=== PATIENT | female | born 1935 | race Caucasian/White ===

== ENCOUNTER → 2016-07-13 | Outpatient (CLI) | payer MEDICARE, BC ==
--- NOTE | 2016-07-13 13:19 | US ---
EXAMINATION TYPE: US venous doppler duplex LE LT DATE OF EXAM: 07/13/2016 12:54 PM COMPARISON: NONE CLINICAL HISTORY: M54.5 LOW BACK PAIN,M47.817 SPONDYLOSIS. Left Leg Pain SIDE PERFORMED: Left VESSELS IMAGED: External Iliac Vein (EIV) Common Femoral Vein Deep Femoral Vein Greater Saphenous Vein * Femoral Vein Popliteal Vein Small Saphenous Vein * Proximal Calf Veins (* superficial vessels) Left Leg: Negative for DVT Results called to Radha at 's office at time of exam No popliteal fossa lesion was seen. IMPRESSION: THIS EXAMINATION IS NEGATIVE FOR DVT WITHIN THE LEFT LEG.
== END ==
LOC: RADUSWWP 12:31
PROVIDERS: ATTEND Physical Medicine & Rehabilitation
DX: M54.5 Low back pain (principal)

== ENCOUNTER → 2016-10-11 | Outpatient (CLI) | payer MEDICARE, BC ==
--- NOTE | 2016-10-11 08:43 | US ---
EXAMINATION TYPE: US abdomen limited DATE OF EXAM: 10/11/2016 COMPARISON: CT 2013 CLINICAL HISTORY: K76.89 Hyperintense lesions in liver. Elevated liver enzymes, gallstone EXAM MEASUREMENTS: Liver Length: 15.7 cm Gallbladder Wall: 0.2 cm CBD: 0.2 cm Right Kidney: 9.3 x 4.0 x 4.1 cm Pancreas: wnl Liver: wnl Gallbladder: gallstone Evidence for sonographic Oropeza's sign: No CBD: wnl Right Kidney: wnl Limited views of the pancreas are unremarkable. The liver is normal in size without biliary dilatation. There is a 3 cm calculus within the gallbladder. The gallbladder wall was not thickened measuring 1.7 mm. The distal common hepatic duct is normal in size measuring 2 mm. There is no sonographic Oropeza' s sign. Right kidney is normal. IMPRESSION: CHOLELITHIASIS.
== END | disposition home or self-care (01) ==
LOC: RADUSWWP 07:39
PROVIDERS: ATTEND Family Medicine
DX: K80.20 Calculus of gallbladder without cholecystitis without obstruction (principal)
CPT/HCPCS: 76705

== ENCOUNTER → 2018-04-03 | Outpatient (CLI) | payer MEDICARE, BC ==
--- NOTE | 2018-04-03 10:12 | XR ---
EXAMINATION TYPE: XR abdomen 1V DATE OF EXAM: 04/03/2018 9:57 AM CLINICAL HISTORY: Left sided pain TECHNIQUE: Two supine KUB images of the abdomen are obtained. COMPARISON: CT abdomen pelvis October 27, 2013. FINDINGS: Scattered gas is seen in non-distended small bowel loops. Gas and fecal material is seen in non-distended colon. There is multilevel spurring and disc space narrowing throughout the lumbar spi ne. Metallic hardware from left hip surgery is partially imaged. Rim calcified gallstone over right 1 2th rib is again seen. Lung bases are clear. Some vascular calcification projects over pelvis. IMPRESSION: No definite nephrolithiasis. No significant change from comparison CT.
== END ==
LOC: RADXRMAIN 09:27
PROVIDERS: ATTEND Family Medicine
DX: R10.32 Left lower quadrant pain (principal)
CPT/HCPCS: 74018

== ENCOUNTER → 2018-06-26 | Outpatient (CLI) | payer MEDICARE, BC ==
--- NOTE | 2018-06-26 12:42 | CT ---
EXAMINATION TYPE: CT abdomen pelvis w con DATE OF EXAM: 06/26/2018 COMPARISON: 10/27/2013 HISTORY: 82-year-old female diverticulitis, GI bleed TECHNIQUE: Contiguous axial scanning of the abdomen and pelvis following administration of 100 ml Iso bindu 300 IV contrast. Delayed images through the kidneys and coronal/sagittal reconstructions perform ed. CT DLP: 1193 mGycm Automated exposure control for dose reduction was used. FINDINGS: Heart borderline enlarged without pericardial effusion. Some circumferential thickening at the GE demetrio ction likely relates to a small hiatal hernia. Lung bases clear without pleural effusion. Small fatty left-sided Bochdalek hernia. Stable focal hypodensity posterior right liver lobe suggesting a benign etiology. Tiny subcentimeter hypodensity left hepatic dome too small for accurate CT characterization, probable tiny cyst. Portal venous system is patent. No biliary ductal dilatation. Small diverticulum of the second portio n of the duodenum. There is a 2.8 cm gallstone. Suggestion of a phrygian cap. Some focal thickening at the phrygian cap likely redundant wall, reference axial image 30. Moderate atherosclerotic calcifications throughout the abdominal aorta and iliac arteries without ane urysm. No dilated small bowel, free fluid, or free air. There is moderate to large stool burden. Some diverticular change noted along the sigmoid colon. Mental hardware artifact relating to the patient's left hip total arthroplasty limits visualization o f some of the mid to distal colon. Mild acute diverticulitis in this region cannot be excluded and re quires clinical correlation. Bulging laxity of the lower anterior abdominal wall with small bowel loops. Over the pubic symphysis due to the laxity. There is rectus diastases of 10.6 cm wide. Pelvic floor relaxation. Bladder urine distended. Uterus and ovaries are not visualized. No abnormal fluid collection in the pelvis. Bones: Degenerative changes right hip. Left hip total arthroplasty. Generalized osteopenia and multil evel degenerative changes throughout the lumbar spine. Grade 1, nearly grade 2 anterolisthesis of L4 on L5. Redemonstrated atrophic left psoas major. IMPRESSION: 1. SIGMOID DIVERTICULOSIS. METAL HARDWARE ARTIFACT from the patient's left hip replacement. This obsc ures the mid to distal sigmoid and further clinical correlation will be needed to exclude mild acute diverticulitis here. No abscess or free air identified. 2. Mild circumferential thickening at the GE junction likely relates to a small hiatal hernia. If ind icated by the patient's symptoms, direct visualization can be performed. 3. A 2.8 cm gallstone. Thickening at the gallbladder fundus likely relates to a phrygian cap and wall redundancy. Consider 3 month follow-up gallbladder ultrasound to reevaluate. 4. Rectus diastases measuring 10.6 cm wide. There is anterior bulging laxity of the lower anterior ab dominal wall with some small bowel loops secondarily draped over the pubic symphysis.
== END | disposition home or self-care (01) ==
LOC: RADCTMAIN 08:55
PROVIDERS: ATTEND Surgery
DX: K57.30 Diverticulosis of large intestine without perforation or abscess without bleeding (principal); K80.20 Calculus of gallbladder without cholecystitis without obstruction; M62.08 Separation of muscle (nontraumatic), other site
CPT/HCPCS: 82565; 84520; 74177; 36415; Q9967

== ENCOUNTER → 2018-07-02 | Day surgery (SDC) | payer MEDICARE, BC ==
[2018-06-27 15:44] VITALS: BMI 34.0
[~2018-07-02] MED LIST: GLUCAGON 1 MG/ML VIAL ONE; LACTATED RINGERS 1,000 ML IV SCH; LIDOCAINE 1% 20 ML VIAL (10MG/ML) FOR IV START INTRADERMA PRN; LIDOCAINE 1% INJ 10MG/ML (20 ML MDV) ONE; PROPOFOL 10 MG/ML 20 ML VIAL IV ONE
[2018-07-02 08:04] VITALS: RESP 16; TEMP 98.1
--- NOTE | 2018-07-02 09:01 | P.GSHP ---
History of Present Illness H&P Date: 07/02/18 Chief Complaint: GI bleed, diverticulitis This is a 82-year-old female who presents today for colonoscopy. Patient had issues with GI bleed. She is. History of diverticulitis. Past Medical History Past Medical History: Cancer, Hyperlipidemia, Hypertension, Skin Disorder Additional Past Medical History / Comment(s): skin cancer, blood in stool, diverticulitis, History of Any Multi-Drug Resistant Organisms: None Reported Past Surgical History: Hysterectomy, Joint Replacement Additional Past Surgical History / Comment(s): Left hip replacement, Right KNEE replacement, Skin cancer removed on back Past Anesthesia/Blood Transfusion Reactions: No Reported Reaction Smoking Status: Never smoker - Past Family History Mother Family Medical History: No Reported History Medications and Allergies Home Medications Medication Instructions Recorded Confirmed Type Atenolol [Tenormin] 25 mg PO DAILY 10/27/13 07/02/18 History Lisinopril-Hctz 10-12.5 mg 1 tab PO BID 10/27/13 07/02/18 History [Zestoretic 10-12.5] cloNIDine HCL [Catapres] 0.2 mg PO TID 10/27/13 07/02/18 History hydrALAZINE HCL 50 mg PO TID 10/27/13 07/02/18 History Vit A,C & E/Lutein/Minerals 1 each PO DAILY 12/16/13 07/02/18 History [Ocuvite Tablet] Aspirin [Adult Low Dose Aspirin EC] 81 mg PO DAILY 06/27/18 07/02/18 History Atorvastatin [Lipitor] 20 mg PO HS 06/27/18 07/02/18 History Calcium Carbonate [Calcium] 600 mg PO DAILY 06/27/18 07/02/18 History Vitamin D(Dose Unknown) 1 tab PO DAILY 06/27/18 07/02/18 History Allergies Allergy/AdvReac Type Severity Reaction Status Date / Time No Known Allergies Allergy Verified 06/27/18 15:30 Surgical - Exam Vital Signs Temp Pulse Resp BP Pulse Ox 98.1 F 57 L 16 202/87 94 L 07/02/18 08:03 07/02/18 08:03 07/02/18 08:03 07/02/18 08:03 07/02/18 08:03 - General well developed, well nourished, no distress - Eyes PERRL - ENT normal pinna - Neck no masses - Respiratory normal expansion - Cardiovascular Rhythm: regular - Abdomen Abdomen: soft, non tender Assessment and Plan Assessment: History of GI bleed, diverticulitis. We'll perform colonoscopy..
--- NOTE | 2018-07-02 09:21 | P.OP ---
Date of Procedure: 07/02/18 Preoperative Diagnosis: GI bleed, Diverticulitis Postoperative Diagnosis: Diverticulitis Procedure(s) Performed: Colonoscopy Anesthesia: MAC Surgeon: Wyatt Camp Pathology: none sent Condition: stable Disposition: PACU Description of Procedure: The patient was placed on the endoscopy table in the lateral position. She received IV sedation. Digital rectal exam was performed which revealed no ebonized. Flexible colonoscope was then placed patient anus and passed throughout the rectum. The scope was then entered into the sigmoid colon. There were diverticula seen. In the sigmoid colon Was very tortuous. The scope could not be maneuvered through the sigmoid colon secondary to tortuosity the colon. Several attempts were made to maneuver the colonoscope. At this point the colonoscope withdrawn and a pediatric colonoscope was tried once again the scope could not be passed throughout the sigmoid colon secondary to tortuosity of the bowel. At this point the scope was withdrawn. The rectum appeared normal. Patient tolerated procedure well and was sent to recovery in stable condition.
[2018-07-02 09:40] VITALS: BP 177/81; PULSE 58
== END ==
LOC: ORWHC2ENDO 07:46
PROVIDERS: ATTEND Surgery
DX: K57.33 Diverticulitis of large intestine without perforation or abscess with bleeding (principal); I10 Essential (primary) hypertension; E78.5 Hyperlipidemia, unspecified; L98.9 Disorder of the skin and subcutaneous tissue, unspecified; Z79.899 Other long term (current) drug therapy; Z79.82 Long term (current) use of aspirin; Z85.828 Personal history of other malignant neoplasm of skin; Z96.642 Presence of left artificial hip joint; Z96.651 Presence of right artificial knee joint
CPT/HCPCS: 45330; J1610; J2001; J2704

== ENCOUNTER → 2018-07-11 | Outpatient (CLI) | payer MEDICARE, BC ==
[2018-07-11 13:05] LABS: Potassium 4.4 mmol/L (3.5-5.1)
[2018-07-11 13:27] LABS: HCT 39.4 % (34.0-46.0); HGB 12.5 gm/dL (11.4-16.0); MCH 29.2 pg (25.0-35.0); MCHC 31.7 g/dL (31.0-37.0); MCV 92.3 fL (80.0-100.0); Mean Platelet Volume 6.9; Platelet Count 251 k/uL (150-450); RBC 4.27 m/uL (3.80-5.40); RDW 13.6 % (11.5-15.5); WBC 9.5 k/uL (3.8-10.6)
== END ==
LOC: LABPAT 10:57
PROVIDERS: ATTEND Surgery
DX: Z01.818 Encounter for other preprocedural examination (principal); K57.33 Diverticulitis of large intestine without perforation or abscess with bleeding
CPT/HCPCS: 36415; 80051; 85027; 86850; 86900; 86901; 93005

== ENCOUNTER 2018-07-15 09:33 | Inpatient (IN) | payer MEDICARE, BC ==
[2018-07-11 13:37] VITALS: BMI 34.0
[~2018-07-15 09:33] MED LIST changes: +DEXAMETHASONE SOD PHOSPHATE 10 MG/ML 1 ML VIAL IV ONE; -GLUCAGON 1 MG/ML VIAL ONE; +HEPARIN SODIUM,PORCINE 5,000 UNIT/ML 1 ML VIAL SQ ONE; +HYDROmorphone 0.5 MG/0.5 ML SYRINGE IVP PRN; -LACTATED RINGERS 1,000 ML IV SCH; -LIDOCAINE 1% 20 ML VIAL (10MG/ML) FOR IV START INTRADERMA PRN; -LIDOCAINE 1% INJ 10MG/ML (20 ML MDV) ONE; +MIDAZOLAM (PF) 2 MG/2 ML VIAL IV PRN; +ONDANSETRON 4 MG/2 ML VIAL IVP ONE; -PROPOFOL 10 MG/ML 20 ML VIAL IV ONE; +ceFAZolin IN SWFI 2 GM/20 ML SYRINGE IVP ONE; +metroNIDAZOLE-NS PMX 500 MG in SALINE 1 100ML.BAG IVPB ONE
[2018-07-15] MEDS: LACTATED RINGERS 1,000 ML IV SCH ×4 (10:32→22:28)
[2018-07-15] MEDS ORDERED: LIDOCAINE 1% 20 ML VIAL (10MG/ML) FOR IV START INTRADERMA ONE (10:32)
[2018-07-15] MEDS ORDERED: ALVIMOPAN 12 MG CAPSULE PO ONE (10:50)
--- NOTE | 2018-07-15 10:51 | P.GSHP ---
History of Present Illness H&P Date: 07/15/18 Chief Complaint: Cholelithiasis, diverticulitis This a 83-year-old female who presents today for laparoscopic cholecystectomy and low anterior section. Patient's had issues of abdominal pain and GI bleed. She is worked up found have evidence of a calcified gallbladder with gallstones impacted in the neck of the gallbladder as well as diverticulitis. Patient has had several episodes of rectal bleeding related to diverticulitis. Patient is aware the risks of surgery discussed with patient and family the risk of colon surgery including possible colostomy. Past Medical History Past Medical History: Cancer, Hypertension, Skin Disorder Additional Past Medical History / Comment(s): HX SKIN CANCER , DIVERTICULITIS, GALL STONE, CONSTIPATION & BLOOD IN STOOL., STATES SHE WEARS A RIGHT ANKLE BRACE AND USES A CANE. History of Any Multi-Drug Resistant Organisms: None Reported Past Surgical History: Hysterectomy, Joint Replacement Additional Past Surgical History / Comment(s): Left HIP,Right KNEE, Skin cancer removed on back , COLONOSCOPY. Past Anesthesia/Blood Transfusion Reactions: No Reported Reaction Past Psychological History: No Psychological Hx Reported Smoking Status: Never smoker Past Alcohol Use History: None Reported Past Drug Use History: None Reported - Past Family History Mother Family Medical History: No Reported History Medications and Allergies Home Medications Medication Instructions Recorded Confirmed Type Atenolol [Tenormin] 25 mg PO DAILY 10/27/13 07/15/18 History Lisinopril-Hctz 10-12.5 mg 1 tab PO BID 10/27/13 07/15/18 History [Zestoretic 10-12.5] cloNIDine HCL [Catapres] 0.2 mg PO TID 10/27/13 07/15/18 History hydrALAZINE HCL 50 mg PO TID 10/27/13 07/15/18 History Vit A,C & E/Lutein/Minerals 1 each PO DAILY 12/16/13 07/15/18 History [Ocuvite Tablet] Aspirin [Adult Low Dose Aspirin EC] 81 mg PO DAILY 06/27/18 07/15/18 History Atorvastatin [Lipitor] 20 mg PO HS 06/27/18 07/15/18 History Cholecalciferol [Vitamin D3] 1,000 unit PO DAILY 07/11/18 07/15/18 History Allergies Allergy/AdvReac Type Severity Reaction Status Date / Time No Known Allergies Allergy Verified 07/15/18 10:38 Surgical - Exam Vital Signs Temp Pulse Resp BP Pulse Ox 97.0 F L 55 L 16 138/68 97 07/15/18 10:15 07/15/18 10:15 07/15/18 10:15 07/15/18 10:15 07/15/18 10:15 - General well developed, well nourished, no distress - Eyes PERRL - ENT normal pinna, normal nares, normal mucosa - Neck no masses - Respiratory normal expansion - Cardiovascular Rhythm: regular - Abdomen Abdomen: soft, non tender Assessment and Plan Assessment: Cholelithiasis, calcified gallbladder. We'll perform laparoscopic close to 3 Diverticulitis. We'll perform low anterior resection..
[2018-07-15] MEDS ORDERED: LIDOCAINE 1% INJ 10MG/ML (20 ML MDV) ONE (11:40)
[2018-07-15] MEDS ORDERED: NEOSTIGMINE 1 MG/ML 10 ML VIAL ONE (11:40)
[2018-07-15] MEDS ORDERED: SUCCINYLCHOLINE CHLORIDE 100 MG/5 ML SYR IV ONE (11:40)
[2018-07-15] MEDS ORDERED: KETAMINE 10 MG/ML 20 ML VIAL ONE (11:40)
[2018-07-15] MEDS ORDERED: GLYCOPYRROLATE 0.2 MG/ML 2 ML VIAL ONE (11:40)
[2018-07-15] MEDS ORDERED: PROPOFOL 10 MG/ML 20 ML VIAL IV ONE (11:40)
[2018-07-15] MEDS ORDERED: fentaNYL (PF) 50 MCG/ML 2 ML AMP ONE (11:40)
[2018-07-15] MEDS ORDERED: ROCURONIUM BROMIDE 10 MG/ML 10 ML VIAL IV ONE (11:40)
[2018-07-15] MEDS ORDERED: KETOROLAC 30 MG/ML 1 ML VIAL ONE (11:40)
[2018-07-15] MEDS ORDERED: BUPIVACAIN-EPI 0.5%-1:200,000 30 ML VIAL SQ ONE (12:03)
[2018-07-15] MEDS ORDERED: LACTATED RINGERS 1,000 ML IV ONE (12:15)
[2018-07-15] MEDS ORDERED: ONDANSETRON 4 MG/2 ML VIAL IVP PRN (13:50)
[2018-07-15] MEDS ORDERED: BENZOCAINE/MENTHOL LOZENG 1 EACH LOZENGE MUCOUS MEM PRN (13:50)
[2018-07-15] MEDS ORDERED: METOCLOPRAMIDE 5 MG/ML 2 ML VIAL IVP PRN (13:50)
--- NOTE | 2018-07-15 13:59 | P.OP ---
Date of Procedure: 07/15/18 Preoperative Diagnosis: Cholecystitis Diverticulitis Postoperative Diagnosis: Cholecystitis Diverticulitis Procedure(s) Performed: Laparoscopic cholecystectomy Low anterior resection Repair of incarcerated incisional hernia Partial omentectomy Anesthesia: WINSOME Surgeon: Wyatt Camp Pathology: other (Gallbladder, sigmoid colon) Condition: stable Disposition: PACU Description of Procedure: The patient was placed on the operating table. The patient received a general endotracheal tube anesthesia. Patient was placed in dorsal lithotomy position. The patients abdomen was prepped and draped in the usual sterile fashion. Through an infraumbilical stab incision, the fascia of the anterior abdominal wall was grasped with a pair of Kochers and then the Veress needle was placed in the peritoneal cavity. Position of the Veress needle was confirmed with positive drop test. The abdomen was then insufflated. After adequate insufflation, the 10 mm trocar was placed in the peritoneal cavity. Following this the laparoscope was placed in the peritoneal cavity. The patient was placed in the head-up, right side up position and then a 5 mm trocar was placed in the right lateral and right subcostal position under direct visualization. A 8 mm trocar was placed in the epigastric position. The gallbladder was grasped in the fundus and infundibulum. Traction on the gallbladder was placed in the lateral and the cephalad positions. The triangle of Calot was visualized.. The cystic duct was bluntly dissected until the union of the cystic duct and common bile duct was seen. The cystic duct was then divided and sealed with the Harmonic scissors. A PDS Endoloop was then placed throughout the cystic duct stump. The cystic artery divided and sealed with the Harmonic scissors. The gallbladder was then removed from the liver bed using Harmonic scissors. The liver bed was inspected for hemostasis. There is no bleeding seen. A grasper was placed through the epigastric port site and the gallbladder was grasped. At this point the abdomen was entered through a low midline incision. There was evidence of an incarcerated hernia in the low portion of her previous midline scar. There was omentum in the hernia. The hernia was opened and the omentum was transected with the Enseal device. The specimens of pathology. Once the abdomen was opened the gallbladder was retrieved. The trochars withdrawn. The Bookwalter retractors placed a wound. The sigmoid colon appeared to be scarred and inflamed. At this point the white line of Toldt was divided. The left colon and sigmoid colon was rotated medially. The splenic flexure was taken down with sharp dissection. An enterotomy was made on the sigmoid colon and then the anvil for the 25 mm EEA stapler was placed into the descending colon. At this point the distal descending colon was transected with a GI stapler. The anvil was then brought out through the staple line. The mesentery of the sigmoid colon and rectum was divided using the Enseal device. The rectum was then transected using the contour stapler. Next, the anal dilators placed patient anus and placed into the rectal stump., Next, the EEA stapler was placed in the patient's anus by the observation assistant. The spike was driven through the staple line. And then the anvil was connected to the stapler. Stapler was then closed and fired. The stapler was then withdrawn. 2 intact tissue rings were withdrawn. Next the bowel was clamped with a hydro- vegetable cutter and then using a rigid sigmoidoscope the rectum was insufflated with air. There was no evidence of any extravasation of air. There is known to any leak of the staple line. The stapler was checked under water. This point the abdomen was irrigated. Using clean instruments the fascia was closed. Repair of the incisional hernia was performed with fascial closure. The skin was closed don. The prevena wound system was placed on the closed skin. Patient top she will was sent to recovery in stable condition.
[2018-07-15] MEDS ORDERED: D5-0.45% NACL WITH KCL 20MEQ/L 1,000 ML IV SCH (15:00)
[2018-07-15] MEDS: HEPARIN SODIUM,PORCINE 5,000 UNIT/ML 1 ML VIAL SQ SCH (15:18)
[2018-07-15 16:30] LABS: Basophils % (A) 0 %; Eosinophils # (A) 0.1 k/uL (0-0.7); Eosinophils % (A) 1 %; HGB 12.8 gm/dL (11.4-16.0); Lymphocytes # (A) 0.4 k/uL (1.0-4.8); Lymphocytes % (A) 4 %; MCH 29.3 pg (25.0-35.0); MCHC 32.1 g/dL (31.0-37.0); MCV 91.3 fL (80.0-100.0); Mean Platelet Volume 7.4; Monocytes # (A) 0.4 k/uL (0-1.0); Monocytes % (A) 4 %; Neutrophils # (A) 9.8 k/uL (1.3-7.7); Neutrophils % (A) 91 %; Platelet Count 223 k/uL (150-450); RBC 4.38 m/uL (3.80-5.40); RDW 13.9 % (11.5-15.5); WBC 10.7 k/uL (3.8-10.6)
[2018-07-15 16:38] LABS: Calcium 9.1 mg/dL (8.4-10.2); Potassium 3.2 mmol/L (3.5-5.1)
[2018-07-15] MEDS ORDERED: ENALAPRILAT 1.25 MG/ML 1 ML VIAL IVP STA (17:18)
[2018-07-15] MEDS: SODIUM CHLORIDE 0.9% 1,000 ML IV SCH (17:47)
[2018-07-15] MEDS ORDERED: cloNIDine 0.2 MG/24HR PATCH TRANSDERM SCH (18:00)
[2018-07-15] MEDS: FAMOTIDINE 20 MG/2 ML VIAL IV SCH (21:49)
[2018-07-15] MEDS: ALVIMOPAN 12 MG CAPSULE PO SCH (21:49)
[2018-07-16] MEDS: SODIUM CHLORIDE 0.9% 1,000 ML IV SCH ×3 (00:15→23:58)
[2018-07-16] MEDS: HEPARIN SODIUM,PORCINE 5,000 UNIT/ML 1 ML VIAL SQ SCH ×3 (00:15→17:11)
[2018-07-16] MEDS: LACTATED RINGERS 1,000 ML IV SCH (06:24)
--- NOTE | 2018-07-16 07:48 | P.CONS ---
History of Present Illness - Reason for Consult Consult date: 07/16/18 Requesting physician: Wyatt Camp - Chief Complaint Post op medical management - History of Present Illness This is a consultation note on an 83-year-old white female patient with known history of hypertension who is seen postoperatively from acute colitis with resection area the patient is having elevated blood pressure at this time postoperatively. We will continue Vasotec. Question need for beta deepa. However the patient is lucid without significant chest pain or shortness of breath. No headaches or visual distortion stated. No flatus as of yet postop day #1. Review of Systems Constitutional: Denies chills, Denies fever Eyes: denies blurred vision, denies pain Ears, nose, mouth and throat: Denies headache, Denies sore throat Cardiovascular: Denies chest pain, Denies dyspnea on exertion, Denies edema Respiratory: Denies cough, Denies dyspnea Gastrointestinal: Reports abdominal pain, Denies nausea, Denies vomiting Genitourinary: Denies dysuria, Denies hematuria Musculoskeletal: Denies myalgias Past Medical History Past Medical History: Cancer, Hypertension, Skin Disorder Additional Past Medical History / Comment(s): HX SKIN CANCER , DIVERTICULITIS, GALL STONE, CONSTIPATION & BLOOD IN STOOL., STATES SHE WEARS A RIGHT ANKLE BRACE AND USES A CANE. History of Any Multi-Drug Resistant Organisms: None Reported Past Surgical History: Hysterectomy, Joint Replacement Additional Past Surgical History / Comment(s): Left HIP,Right KNEE, Skin cancer removed on back , COLONOSCOPY. bladder lift. Past Anesthesia/Blood Transfusion Reactions: No Reported Reaction Past Psychological History: No Psychological Hx Reported, Anxiety Additional Psychological History / Comment(s): does not take medication for. Smoking Status: Never smoker Past Alcohol Use History: None Reported Past Drug Use History: None Reported - Past Family History Mother Family Medical History: No Reported History Medications and Allergies Home Medications Medication Instructions Recorded Confirmed Type Atenolol [Tenormin] 25 mg PO DAILY 10/27/13 07/15/18 History Lisinopril-Hctz 10-12.5 mg 1 tab PO BID 10/27/13 07/15/18 History [Zestoretic 10-12.5] cloNIDine HCL [Catapres] 0.2 mg PO TID 10/27/13 07/15/18 History hydrALAZINE HCL 50 mg PO TID 10/27/13 07/15/18 History Vit A,C & E/Lutein/Minerals 1 tab PO DAILY 12/16/13 07/15/18 History [Ocuvite Tablet] Aspirin [Adult Low Dose Aspirin EC] 81 mg PO DAILY 06/27/18 07/15/18 History Atorvastatin [Lipitor] 20 mg PO HS 06/27/18 07/15/18 History Cholecalciferol [Vitamin D3] 1,000 unit PO DAILY 07/11/18 07/15/18 History Allergies Allergy/AdvReac Type Severity Reaction Status Date / Time No Known Allergies Allergy Verified 07/15/18 14:04 Physical Exam Vitals: Vital Signs Temp Pulse Resp BP BP Pulse Ox 07/16/18 04:00 16 07/16/18 01:07 98.2 F 76 16 177/81 93 L 07/16/18 00:00 18 07/15/18 19:46 99.4 F 75 18 171/81 94 L 07/15/18 16:45 59 L 165/72 07/15/18 16:30 69 163/74 07/15/18 16:15 60 136/73 07/15/18 16:00 64 148/68 07/15/18 15:45 51 L 154/64 07/15/18 15:30 54 L 154/53 07/15/18 15:15 48 L 155/65 07/15/18 15:00 58 L 185/75 07/15/18 14:45 97.9 F 56 L 14 172/78 91 L 07/15/18 14:15 58 L 16 154/79 93 L 07/15/18 14:00 57 L 14 188/87 94 L 07/15/18 13:53 97.8 F 60 18 199/83 96 07/15/18 10:15 97.0 F L 55 L 16 138/68 97 Intake and Output 07/15/18 07/16/18 07/16/18 22:59 06:59 14:59 Output Total 150 250 Balance -150 -250 Output: Urine 150 250 Other: Voiding Method Indwelling Catheter Indwelling Catheter - Constitutional General appearance: average body habitus - EENT Eyes: no abnormal pupil - Neck Neck: no lymphadenopathy - Respiratory Respiratory: bilateral: CTA - Cardiovascular Rhythm: regular Heart sounds: normal: S1, S2 Abnormal Heart Sounds: no S3 Gallop, no S4 Gallop - Gastrointestinal General gastrointestinal: absent bowel sounds, soft, tenderness - Psychiatric Psychiatric: A&O x's 3, appropriate affect, intact judgment & insight Results CBC & Chem 7: 07/15/18 16:00 07/15/18 16:00 Labs: Abnormal Lab Results - Last 24 Hours (Table) 07/15/18 07/15/18 Range/Units 16:00 16:00 WBC 10.7 H (3.8-10.6) k/uL Neutrophils # 9.8 H (1.3-7.7) k/uL Lymphocytes # 0.4 L (1.0-4.8) k/uL Potassium 3.2 L (3.5-5.1) mmol/L BUN 23 H (7-17) mg/dL Glucose 126 H (74-99) mg/dL Assessment and Plan (1) Acute colitis Current Visit: No Status: Acute Code(s): K52.9 - NONINFECTIVE GASTROENTERITIS AND COLITIS, UNSPECIFIED SNOMED Code(s): 46252158 (2) HTN (hypertension) Current Visit: No Status: Acute Code(s): I10 - ESSENTIAL (PRIMARY) HYPERTENSION SNOMED Code(s): 90465735 (3) Hyperlipemia Current Visit: No Status: Acute Code(s): E78.5 - HYPERLIPIDEMIA, UNSPECIFIED SNOMED Code(s): 18330798 Plan: Keep nothing by mouth for now per surgical protocol. Check CBC and CMP in a.m. per Continue clonidine patch. Vasotec every 6 hours when necessary. Otherwise hydralazine IV also could be added. Continue to follow. Appreciate consultation. Time with Patient: Greater than 30
[2018-07-16] MEDS: FAMOTIDINE 20 MG/2 ML VIAL IV SCH ×2 (08:09→20:03)
[2018-07-16] MEDS: ALVIMOPAN 12 MG CAPSULE PO SCH ×2 (08:10→20:03)
[2018-07-16] MEDS: HYDROmorphone 1 MG/ML 1 ML SYRINGE IVP PRN ×2 (09:10→23:59)
[2018-07-16 10:29] LABS: Basophils % (A) 0 %; Eosinophils # (A) 0.1 k/uL (0-0.7); Eosinophils % (A) 0 %; HCT 34.2 % (34.0-46.0); HGB 10.8 gm/dL (11.4-16.0); Lymphocytes # (A) 0.7 k/uL (1.0-4.8); Lymphocytes % (A) 4 %; MCH 29.2 pg (25.0-35.0); MCHC 31.6 g/dL (31.0-37.0); MCV 92.4 fL (80.0-100.0); Mean Platelet Volume 8.4; Monocytes # (A) 0.7 k/uL (0-1.0); Monocytes % (A) 5 %; Neutrophils # (A) 14.5 k/uL (1.3-7.7); Neutrophils % (A) 90 %; Platelet Count 211 k/uL (150-450); WBC 16.1 k/uL (3.8-10.6)
[2018-07-16 10:50] LABS: Albumin 2.8 g/dL (3.5-5.0); Calcium 8.5 mg/dL (8.4-10.2); Potassium 3.6 mmol/L (3.5-5.1); Total Bilirubin 0.5 mg/dL (0.2-1.3); Total Protein 5.2 g/dL (6.3-8.2)
--- NOTE | 2018-07-16 13:55 | P.PN ---
Subjective Progress Note Date: 07/16/18 CHIEF COMPLAINT: Cholelithiasis, diverticulitis HISTORY OF PRESENT ILLNESS: 83-year-old female who is status post laparoscopic cholecystectomy, low anterior resection, repair of incarcerated incisional hernia, and partial omentectomy. POD #1. Patient reports her pain is tolerable at this time. Denies nausea or vomiting. She is tolerating clear liquids. Denies passing flatus. No BM. PHYSICAL EXAM: VITAL SIGNS: Reviewed. GENERAL: Well-developed in no acute distress. HEENT: No sclera icterus. Extraocular movements grossly intact. Moist buccal mucosa. Head is atraumatic, normocephalic. ABDOMEN: Soft. Nondistended. Laparoscopic incision sites clean dry and intact. PREVENA intact to midline incision NEUROLOGIC: Alert and oriented. Cranial nerves II through XII grossly intact. ASSESSMENT: 1. Cholelithiasis & diverticulitis, status post laparoscopic cholecystectomy, low anterior resection, repair of incarcerated incisional hernia, and partial omentectomy PLAN: 1. Continue clear liquid diet until patient begins passing flatus 2. Incentive spirometry 3. Pain control 4. Activity as tolerated. Patient encouraged to be OOB and ambulatory. 5. Repeat labs in AM Nurse practitioner note has been reviewed by physician. Signing provider agrees with the documented findings, assessment, and plan of care. Objective - Vital Signs Vital signs: Vital Signs Temp 98.2 F 07/16/18 07:00 Pulse 61 07/16/18 08:00 Resp 16 07/16/18 08:00 BP 127/71 07/16/18 07:00 Pulse Ox 93 L 07/16/18 01:07 Intake & Output 07/15/18 07/16/18 07/16/18 18:59 06:59 18:59 Intake Total 1900 Output Total 700 400 Balance 1200 -400 Intake: IV 1900 Output: Urine 450 400 Estimated Blood Loss 250 Other: Voiding Method Indwelling Catheter Indwelling Catheter Indwelling Catheter - Labs CBC & Chem 7: 07/16/18 10:20 07/16/18 10:20 Labs: Abnormal Lab Results - Last 24 Hours (Table) 07/15/18 07/15/18 07/16/18 Range/Units 16:00 16:00 10:20 WBC 10.7 H 16.1 H (3.8-10.6) k/uL RBC 3.70 L (3.80-5.40) m/uL Hgb 10.8 L (11.4-16.0) gm/dL Neutrophils # 9.8 H 14.5 H (1.3-7.7) k/uL Lymphocytes # 0.4 L 0.7 L (1.0-4.8) k/uL Potassium 3.2 L (3.5-5.1) mmol/L BUN 23 H (7-17) mg/dL Glucose 126 H (74-99) mg/dL Total Protein (6.3-8.2) g/dL Albumin (3.5-5.0) g/dL 07/16/18 Range/Units 10:20 WBC (3.8-10.6) k/uL RBC (3.80-5.40) m/uL Hgb (11.4-16.0) gm/dL Neutrophils # (1.3-7.7) k/uL Lymphocytes # (1.0-4.8) k/uL Potassium (3.5-5.1) mmol/L BUN 19 H (7-17) mg/dL Glucose 141 H (74-99) mg/dL Total Protein 5.2 L (6.3-8.2) g/dL Albumin 2.8 L (3.5-5.0) g/dL
[2018-07-16] MEDS: HYDROcodone/APAP 5-325MG 1 EACH TAB PO PRN ×2 (16:02→20:04)
[2018-07-16] MEDS: ENALAPRILAT 1.25 MG/ML 1 ML VIAL IVP PRN (20:04)
[2018-07-17] MEDS: HEPARIN SODIUM,PORCINE 5,000 UNIT/ML 1 ML VIAL SQ SCH ×4 (01:35→23:51)
[2018-07-17] MEDS: SODIUM CHLORIDE 0.9% 1,000 ML IV SCH ×4 (01:57→16:48)
[2018-07-17] MEDS: ENALAPRILAT 1.25 MG/ML 1 ML VIAL IVP PRN (02:15)
--- NOTE | 2018-07-17 07:39 | P.PN ---
Subjective Progress Note Date: 07/17/18 Principal diagnosis: Status post cholecystectomy This is a continue progress note an 83-year-old white female who is postop day #2 for left scalp cholecystectomy and incisional hernia element repair. The patient states appropriate bowel movement and tolerating clear liquids. H opefully we can advance today diet per surgery. Otherwise no fever or chills. Pain is nominal. Objective - Vital Signs Vital signs: Vital Signs Temp 98.1 F 07/17/18 01:22 Pulse 87 07/17/18 01:22 Resp 16 07/17/18 01:22 BP 180/99 07/17/18 06:10 Pulse Ox 92 L 07/17/18 01:22 Intake & Output 07/16/18 07/17/18 07/17/18 18:59 06:59 18:59 Intake Total 1050 Output Total 550 Balance 1050 -550 Intake: Intake, IV Titration 1050 Amount Sodium Chloride 0.9% 1, 1050 000 ml @ 150 mls/hr IV . Q6H40M [facility] Rx#:[id number] Output: Urine 550 Other: Voiding Method Indwelling Catheter - Constitutional General appearance: Present: average body habitus - EENT Eyes: Absent: abnormal pupil - Neck Neck: Absent: lymphadenopathy Thyroid: bilateral: normal size - Respiratory Respiratory: bilateral: CTA - Cardiovascular Rhythm: regular Heart sounds: normal: S1, S2 Abnormal Heart Sounds: Absent: S3 Gallop - Gastrointestinal General gastrointestinal: Present: soft. Absent: tenderness - Psychiatric Psychiatric: Present: A&O x's 3, appropriate affect - Labs CBC & Chem 7: 07/16/18 10:20 07/16/18 10:20 Labs: Abnormal Lab Results - Last 24 Hours (Table) 07/16/18 07/16/18 Range/Units 10:20 10:20 WBC 16.1 H (3.8-10.6) k/uL RBC 3.70 L (3.80-5.40) m/uL Hgb 10.8 L (11.4-16.0) gm/dL Neutrophils # 14.5 H (1.3-7.7) k/uL Lymphocytes # 0.7 L (1.0-4.8) k/uL BUN 19 H (7-17) mg/dL Glucose 141 H (74-99) mg/dL Total Protein 5.2 L (6.3-8.2) g/dL Albumin 2.8 L (3.5-5.0) g/dL Assessment and Plan (1) Acute colitis Current Visit: No Status: Acute Code(s): K52.9 - NONINFECTIVE GASTROENTERITIS AND COLITIS, UNSPECIFIED SNOMED Code(s): 98885371 (2) HTN (hypertension) Current Visit: No Status: Acute Code(s): I10 - ESSENTIAL (PRIMARY) HYPERT ENSION SNOMED Code(s): 33805311 (3) Hyperlipemia Current Visit: No Status: Acute Code(s): E78.5 - HYPERLIPIDEMIA, UNSPECIFIED SNOMED Code(s): 85806011 Plan: Continue current regimen or treatment. Advance diet per surgery. We'll continue follow during this medical management. Anticipate discharge in next 24 hours if cleared by surgery. Time with Patient: Less than 30
[2018-07-17] MEDS: ALVIMOPAN 12 MG CAPSULE PO SCH ×2 (08:09→22:00)
[2018-07-17] MEDS: CHOLECALCIFEROL 1,000 UNIT TAB PO SCH (08:09)
[2018-07-17] MEDS: ATENOLOL 25 MG TAB PO SCH (08:09)
[2018-07-17] MEDS: FAMOTIDINE 20 MG/2 ML VIAL IV SCH (08:09)
[2018-07-17 08:10] LABS: Potassium 3.6 mmol/L (3.5-5.1); Total Bilirubin 0.5 mg/dL (0.2-1.3); Total Protein 5.5 g/dL (6.3-8.2)
[2018-07-17 08:11] LABS: HCT 33.4 % (34.0-46.0); HGB 10.5 gm/dL (11.4-16.0); Hypochromasia Slight; MCH 29.4 pg (25.0-35.0); MCHC 31.4 g/dL (31.0-37.0); MCV 93.7 fL (80.0-100.0); Mean Platelet Volume 7.5; Platelet Count 229 k/uL (150-450); RBC 3.57 m/uL (3.80-5.40); WBC 15.9 k/uL (3.8-10.6)
[2018-07-17] MEDS: HYDROcodone/APAP 5-325MG 1 EACH TAB PO PRN (08:18)
[2018-07-17] MEDS ORDERED: hydrALAZINE HCL 50 MG TAB PO SCH (09:00)
[2018-07-17] MEDS ORDERED: cloNIDine HCL 0.2 MG TAB PO SCH (09:00)
[2018-07-17] MEDS: LACTATED RINGERS 1,000 ML IV SCH (10:34)
[2018-07-17] MEDS: VIT A,C & E-LUTEIN-MINERALS 1 EACH TAB PO SCH (10:35)
[2018-07-17] MEDS: LISINOPRIL-HCTZ 10-12.5 MG 1 EACH TAB PO SCH ×2 (10:35→22:00)
[2018-07-17] MEDS ORDERED: ENALAPRILAT 1.25 MG/ML 1 ML VIAL IVP STA (12:03)
--- NOTE | 2018-07-17 12:47 | P.PN ---
Subjective Progress Note Date: 07/17/18 CHIEF COMPLAINT: Cholelithiasis, diverticulitis HISTORY OF PRESENT ILLNESS: 83-year-old female who is status post laparoscopic cholecystectomy, low anterior resection, repair of incarcerated incisional hernia, and partial omentectomy. POD #2. Patient reports her pain is tolerable at this time. Denies nausea or vomiting. She is tolerating clear liquids, but does not like them and is requesting diet to be advanced. Patient does not recall passing flatus, but reports she did have two small bowel movements. Patient only able to pull 500cc on IS. PHYSICAL EXAM: VITAL SIGNS: Reviewed. GENERAL: Well-developed in no acute distress. HEENT: No sclera icterus. Extraocular movements grossly intact. Moist buccal mucosa. Head is atraumatic, normocephalic. ABDOMEN: Soft. Nondistended. Laparoscopic incision sites clean dry and intact. PREVENA intact to midline incision NEUROLOGIC: Alert and oriented. Cranial nerves II through XII grossly intact. ASSESSMENT: 1. Cholelithiasis & diverticulitis, status post laparoscopic cholecystectomy, low anterior resection, repair of incarcerated incisional hernia, and partial omentectomy PLAN: 1. Advance diet to full liquids 2. Incentive spirometry 3. Pain control 4. Activity as tolerated. Patient encouraged to be OOB and ambulatory. PT/OT 5. Monitor WBC. Continue Zosyn 6. Blood pressure management per Dr. Colon 7. Dr. Camp spoke with family and notified them that patient will not be ready for discharge until Saturday at the earliest. Nurse practitioner note has been reviewed by physician. Signing provider agrees with the documented findings, assessment, and plan of care. Objective - Vital Signs Vital signs: Vital Signs Temp 98.8 F 07/17/18 07:00 Pulse 87 07/17/18 07:00 Resp 14 07/17/18 07:00 BP 180/88 07/17/18 07:00 Pulse Ox 95 07/17/18 07:00 Intake & Output 07/16/18 07/17/18 07/17/18 18:59 06:59 18:59 Intake Total 1050 1400 Output Total 550 Balance 1050 850 Intake: Intake, IV Titration 1050 1200 Amount Sodium Chloride 0.9% 1, 1050 1200 000 ml @ 150 mls/hr IV . Q6H40M [facility] Rx#:[id number] Oral 200 Output: Urine 550 Other: Voiding Method Indwelling Catheter Indwelling Catheter - Labs CBC & Chem 7: 07/17/18 07:14 07/17/18 07:14 Labs: Abnormal Lab Results - Last 24 Hours (Table) 07/17/18 07/17/18 Range/Units 07:14 07:14 WBC 15.9 H (3.8-10.6) k/uL RBC 3.57 L (3.80-5.40) m/uL Hgb 10.5 L (11.4-16.0) gm/dL Hct 33.4 L (34.0-46.0) % Glucose 106 H (74-99) mg/dL Total Protein 5.5 L (6.3-8.2) g/dL Albumin 3.0 L (3.5-5.0) g/dL
[2018-07-17] MEDS ORDERED: LISINOPRIL 10 MG TAB PO STA (15:11)
[2018-07-17] MEDS: PIPERACILLIN-TAZOBACTAM 3.375 GM in SODIUM CHLORIDE 0.9% 100 ML IVPB SCH ×3 (15:12→23:52)
[2018-07-17] MEDS ORDERED: hydrALAZINE HCL 20 MG/ML 1 ML VIAL IVP PRN (15:12)
[2018-07-17] MEDS: hydrALAZINE HCL 25 MG TAB PO SCH ×2 (16:42→22:00)
[2018-07-17] MEDS: cloNIDine HCL 0.1 MG TAB PO SCH ×2 (16:44→22:01)
--- NOTE | 2018-07-17 17:04 | CDI ---
Documentation Clarification Form Date: 07/17/2018 From: Michelle Cifuentes Contact: [email or web address] Admit Date: 07/15/2018 9:33:00 AM Patient Name: Eleanor Walton Visit Number: [id number] Discharge Date: ATTENTION: The Clinical Documentation Specialists (CDI) and [facility] Coding Staff appreciate your assistance in clarifying documentation. Please respond to the clarification below the line at the bottom and electronically sign. The CDI & [facility] Coding staff will review the response and follow-up if needed. Please note: Queries are made part of the Legal Health Record. If you have any questions, please contact the author of this message via ITS. Dr. Joe Colon: Conflicting documentation has been found in the medical record. Per the Surgeon notes the 'patient presented after a work up found evidence of cholelithiasis and diverticulitis'. Your progress notes state that patient was admitted with 'acute colitis'. History/Risk Factors: htn, skin cancer, diverticulitis, gallstone, constipation Clinical Indicators: please see notes above Treatment: laparoscopic cholecystectomy and low anterior resection with repair of incarcerated incisional hernia and partial omentectomy In your opinion, what is the most clinically appropriate diagnosis for this patient? Acute Colitis Cholelithiasis and diverticulitis Other explanation of clinical findings Unable to determine (no explanation for clinical findings) (Last Revision: July 2017) MTDD
[2018-07-17] MEDS: FAMOTIDINE 20 MG TAB PO SCH (21:59)
[2018-07-17] MEDS: ATORVASTATIN 20 MG TAB PO SCH (22:00)
[2018-07-18] MEDS: HYDROcodone/APAP 5-325MG 1 EACH TAB PO PRN ×3 (01:21→21:58)
[2018-07-18] MEDS: LACTATED RINGERS 1,000 ML IV SCH (07:11)
[2018-07-18 07:43] LABS: HCT 30.4 % (34.0-46.0); HGB 9.6 gm/dL (11.4-16.0); MCH 28.6 pg (25.0-35.0); MCHC 31.5 g/dL (31.0-37.0); MCV 90.6 fL (80.0-100.0); Mean Platelet Volume 6.9; Platelet Count 199 k/uL (150-450); RBC 3.35 m/uL (3.80-5.40); RDW 13.9 % (11.5-15.5); WBC 14.3 k/uL (3.8-10.6)
[2018-07-18 07:59] LABS: Albumin 2.4 g/dL (3.5-5.0); Calcium 8.7 mg/dL (8.4-10.2); Potassium 4.1 mmol/L (3.5-5.1); Total Bilirubin 0.5 mg/dL (0.2-1.3); Total Protein 4.7 g/dL (6.3-8.2)
--- NOTE | 2018-07-18 08:13 | P.PN ---
Subjective Principal diagnosis: Status post cholecystectomy This is an 83-year-old white female essentially admitted for cholecystitis. The patient element of hypertensive urgency. Diarrhea is complained of today. No sniffing chest pain or shortness of breath. Objective - Vital Signs Vital signs: Vital Signs Temp 97.5 F L 07/18/18 07:00 Pulse 50 L 07/18/18 07:00 Resp 16 07/18/18 07:00 BP 145/72 07/18/18 07:00 Pulse Ox 95 07/18/18 07:00 Intake & Output 07/17/18 07/18/18 07/18/18 18:59 06:59 18:59 Intake Total 630 Output Total 400 250 Balance 230 -250 Intake: Intake, IV Titration 450 Amount Piperacillin-Tazobactam 3 50 .375 gm In Sodium Chloride 0.9% 100 ml @ 25 mls/hr IVPB Q8HR COUNT INCLUDES THE [facility] Rx# :[id number] Sodium Chloride 0.9% 1, 400 000 ml @ 50 mls/hr IV . Q20H [facility] Rx#:[id number] Oral 180 Output: Urine 400 250 Other: Voiding Method Indwelling Catheter Indwelling Catheter # Bowel Movements 2 - Constitutional General appearance: Present: average body habitus - EENT Eyes: Absent: abnormal pupil - Neck Neck: Absent: lymphadenopathy - Respiratory Respiratory: bilateral: CTA - Cardiovascular Rhythm: regular Heart sounds: normal: S1, S2 Abnormal Heart Sounds: Absent: S3 Gallop - Psychiatric Psychiatric: Present: A&O x's 3 - Labs CBC & Chem 7: 07/18/18 07:10 07/18/18 07:10 Labs: Abnormal Lab Results - Last 24 Hours (Table) 07/17/18 07/18/18 07/18/18 Range/Units 07:14 07:10 07:10 WBC 15.9 H 14.3 H (3.8-10.6) k/uL RBC 3.57 L 3.35 L (3.80-5.40) m/uL Hgb 10.5 L 9.6 L (11.4-16.0) gm/dL Hct 33.4 L 30.4 L (34.0-46.0) % Glucose 113 H (74-99) mg/dL Total Protein 4.7 L (6.3-8.2) g/dL Albumin 2.4 L (3.5-5.0) g/dL Assessment and Plan (1) Acute colitis Current Visit: No Status: Acute Code(s): K52.9 - NONINFECTIVE GASTROENTERITIS AND COLITIS, UNSPECIFIED SNOMED Code(s): 69224756 (2) HTN (hypertension) Current Visit: No Status: Acute Code(s): I10 - ESSENTIAL (PRIMARY) H YPERTENSION SNOMED Code(s): 72063254 (3) Hyperlipemia Current Visit: No Status: Acute Code(s): E78.5 - HYPERLIPIDEMIA, UNSPECIFIED SNOMED Code(s): 74185904 Plan: Continue current regimen of treatment. Cholecystitis element of cholelithiasis which is stable now after surgery. We'll continue to follow from his medical perspective. Anticipate discharge in the next 24-48 hours if tolerating diet. Check stool for C. diff. Dr. Noriega's group will be covering for the weekend.
[2018-07-18] MEDS: CHOLECALCIFEROL 1,000 UNIT TAB PO SCH (08:35)
[2018-07-18] MEDS: HEPARIN SODIUM,PORCINE 5,000 UNIT/ML 1 ML VIAL SQ SCH ×2 (08:35→16:36)
[2018-07-18] MEDS: cloNIDine HCL 0.1 MG TAB PO SCH ×2 (08:35→16:37)
[2018-07-18] MEDS: ALVIMOPAN 12 MG CAPSULE PO SCH ×2 (08:35→21:59)
[2018-07-18] MEDS: ATENOLOL 25 MG TAB PO SCH (08:37)
[2018-07-18] MEDS: FAMOTIDINE 20 MG TAB PO SCH (08:37)
[2018-07-18] MEDS: hydrALAZINE HCL 25 MG TAB PO SCH ×3 (08:37→21:59)
[2018-07-18] MEDS: VIT A,C & E-LUTEIN-MINERALS 1 EACH TAB PO SCH (08:38)
[2018-07-18] MEDS: LISINOPRIL-HCTZ 10-12.5 MG 1 EACH TAB PO SCH ×2 (08:38→21:58)
[2018-07-18] MEDS: PIPERACILLIN-TAZOBACTAM 3.375 GM in SODIUM CHLORIDE 0.9% 100 ML IVPB SCH ×2 (08:42→16:38)
--- NOTE | 2018-07-18 11:23 | P.PN ---
Subjective Progress Note Date: 07/18/18 CHIEF COMPLAINT: Cholelithiasis, diverticulitis HISTORY OF PRESENT ILLNESS: 83-year-old female who is status post laparoscopic cholecystectomy, low anterior resection, repair of incarcerated incisional hernia, and partial omentectomy. POD #3. Patient reports her pain is tolerable at this time. Denies nausea or vomiting. Tolerating full liquid diet. Reports multiple bowel movements overnight and this morning. Patient pulling 500cc on IS. Encouraged to use 10 times an hour. Blood pressure improved today. PHYSICAL EXAM: VITAL SIGNS: Reviewed. GENERAL: Well-developed in no acute distress. HEENT: No sclera icterus. Extraocular movements grossly intact. Moist buccal mucosa. Head is atraumatic, normocephalic. ABDOMEN: Soft. Nondistended. Laparoscopic incision sites clean dry and intact. PREVENA intact to midline incision NEUROLOGIC: Alert and oriented. Cranial nerves II through XII grossly intact. ASSESSMENT: 1. Cholelithiasis & diverticulitis, status post laparoscopic cholecystectomy, low anterior resection, repair of incarcerated incisional hernia, and partial omentectomy PLAN: 1. Continue full liquid diet 2. Incentive spirometry 3. Pain control 4. Activity as tolerated. Patient encouraged to be OOB and ambulatory. PT/OT 5. Monitor WBC. Continue Zosyn 6. Monitor hemoglobin 7. Discontinue bay catheter 8. Dr. Tabares consulted for possible inpatient rehab at [facility] Nurse practitioner note has been reviewed by physician. Signing provider agrees with the documented findings, assessment, and plan of care. Objective - Vital Signs Vital signs: Vital Signs Temp 97.5 F L 07/18/18 07:00 Pulse 50 L 07/18/18 07:30 Resp 16 07/18/18 07:30 BP 145/72 07/18/18 07:00 Pulse Ox 95 07/18/18 07:00 Intake & Output 07/17/18 07/18/18 07/18/18 18:59 06:59 18:59 Intake Total 630 360 Output Total 400 250 Balance 230 -250 360 Intake: Intake, IV Titration 450 Amount Piperacillin-Tazobactam 3 50 .375 gm In Sodium Chloride 0.9% 100 ml @ 25 mls/hr IVPB Q8HR [facility] Rx# :[id number] Sodium Chloride 0.9% 1, 400 000 ml @ 50 mls/hr IV . Q20H [facility] Rx#:[id number] Oral 180 360 Output: Urine 400 250 Other: Voiding Method Indwelling Catheter Indwelling Catheter Indwelling Catheter # Bowel Movements 2 - Labs CBC & Chem 7: 07/18/18 07:10 07/18/18 07:10 Labs: Abnormal Lab Results - Last 24 Hours (Table) 07/18/18 07/18/18 Range/Units 07:10 07:10 WBC 14.3 H (3.8-10.6) k/uL RBC 3.35 L (3.80-5.40) m/uL Hgb 9.6 L (11.4-16.0) gm/dL Hct 30.4 L (34.0-46.0) % Glucose 113 H (74-99) mg/dL Total Protein 4.7 L (6.3-8.2) g/dL Albumin 2.4 L (3.5-5.0) g/dL
--- NOTE | 2018-07-18 12:29 | P.CONS ---
History of Present Illness - Chief Complaint Medical debility - History of Present Illness I had the opportunity to see patient for inpatient consultation with regard to medical debility. She was admitted to [facility] July 15 abdominal pain, seen by Dr. Mendoza. He performed laparoscopic cholecystectomy with herniorrhaphy and partial resection colon. Seen by Dr. Colon for known medical. OT reports moderate assistance for upper dressing and maximal assistance for bathing. Two- person total assistance for lower dressing and toileting and two-person maximal assistance functional ability. PT prescribed. Previous functional history as elicited patient and corroborated by , 2 daughters. 83-year-old right-handed white female who is lives in one floor home with . Both are retired. Patient independent with cooking, laundry, driving, standing shower and gait with standard cane outside of house. Denies history of tobacco or a call. Dr. Colon is regular doctor. Family history mother with hypertension in both parents with heart disease. Review of Systems Review of systems: ENT: Denies sneezes or discharge. Eyes: Denies discharge or photophobia. Cardiac: Denies chest pain or palpitation. Pulmonary: Denies cough or shortness of breath. Breast: Denies discharge or lumps. Gastrointestinal: Some abdominal discomfort. Genitourinary: Denies discharge or frequency. Musculoskeletal: Denies muscle or bone aches. Neurologic: Generalized weakness. Endocrine: Denies shakes or sweats. Oncology: Denies cancers. Dermatologic: Denies rash, itching, pruritus. ALLERGY/immunology: Denies sneezes, rashes. Past Medical History Past Medical History: Cancer, Hypertension, Skin Disorder Additional Past Medical History / Comment(s): HX SKIN CANCER , DIVERTICULITIS, GALL STONE, CONSTIPATION & BLOOD IN STOOL., STATES SHE WEARS A RIGHT ANKLE BRACE AND USES A CANE. History of Any Multi-Drug Resistant Organisms: None Reported Past Surgical History: Hysterectomy, Joint Replacement Additional Past Surgical History / Comment(s): Left HIP,Right KNEE, Skin cancer removed on back , COLONOSCOPY. bladder lift. Past Anesthesia/Blood Transfusion Reactions: No Reported Reaction Past Psychological History: No Psychological Hx Reported, Anxiety Additional Psychological History / Comment(s): does not take medication for. Smoking Status: Never smoker Past Alcohol Use History: None Reported Past Drug Use History: None Reported - Past Family History Mother Family Medical History: No Reported History Medications and Allergies Home Medications Medication Instructions Recorded Confirmed Type Atenolol [Tenormin] 25 mg PO DAILY 10/27/13 07/15/18 History Lisinopril-Hctz 10-12.5 mg 1 tab PO BID 10/27/13 07/15/18 History [Zestoretic 10-12.5] cloNIDine HCL [Catapres] 0.2 mg PO TID 10/27/13 07/15/18 History hydrALAZINE HCL 50 mg PO TID 10/27/13 07/15/18 History Vit A,C & E/Lutein/Minerals 1 tab PO DAILY 12/16/13 07/15/18 History [Ocuvite Tablet] Aspirin [Adult Low Dose Aspirin EC] 81 mg PO DAILY 06/27/18 07/15/18 History Atorvastatin [Lipitor] 20 mg PO HS 06/27/18 07/15/18 History Cholecalciferol [Vitamin D3] 1,000 unit PO DAILY 07/11/18 07/15/18 History Allergies Allergy/AdvReac Type Severity Reaction Status Date / Time No Known Allergies Allergy Verified 07/15/18 14:04 Physical Exam Vitals: Vital Signs Temp Pulse Resp BP Pulse Ox 07/18/18 07:30 50 L 16 07/18/18 07:00 97.5 F L 50 L 16 145/72 95 07/18/18 03:38 152/81 07/18/18 01:12 97.9 F 53 L 16 185/82 95 07/17/18 21:58 170/85 07/17/18 21:06 155/70 07/17/18 20:07 97.8 F 60 20 174/82 95 07/17/18 18:10 190/110 07/17/18 17:00 216/105 07/17/18 16:22 97.9 F 71 17 199/99 95 07/17/18 14:58 97.9 F 73 14 194/95 92 L 07/17/18 12:50 178/104 Intake and Output 07/17/18 07/18/18 07/18/18 22:59 06:59 14:59 Intake Total 360 Output Total 400 250 Balance -400 -250 360 Intake: Oral 360 Output: Urine 400 250 Other: Voiding Method Indwelling Catheter Indwelling Catheter # Bowel Movements 2 Skin: Good color, texture, turgor. General: Morbidly obese build and comfortable appearance. Head: Normocephalic, atraumatic. Eyes: Symmetric. Pupils equal round. Ears: Symmetric. Hearing within normal limits. Mouth: Clear. Neck: Supple. Carotid without bruit. Cardiac: Regular rate and rhythm. Lungs: Clear anteriorly and posteriorly. Abdomen: Soft active nontender. Obese. Clean and dressed. Extremities: Normal tone. Neurological: Mental status: Alert, cooperative, pleasant. Cranial nerves: Symmetric facial tone and trapezius. Motor: Cane actively elevate all 4 limbs. Sensation: Intact throughout. DTRs: Symmetric and equal throughout. Mobility: Requires physical assistance for any mobility. Results CBC & Chem 7: 07/18/18 07:10 07/18/18 07:10 Labs: Abnormal Lab Results - Last 24 Hours (Table) 07/18/18 07/18/18 Range/Units 07:10 07:10 WBC 14.3 H (3.8-10.6) k/uL RBC 3.35 L (3.80-5.40) m/uL Hgb 9.6 L (11.4-16.0) gm/dL Hct 30.4 L (34.0-46.0) % Glucose 113 H (74-99) mg/dL Total Protein 4.7 L (6.3-8.2) g/dL Albumin 2.4 L (3.5-5.0) g/dL Assessment and Plan (1) Cholecystitis Current Visit: Yes Status: Acute Code(s): K81.9 - CHOLECYSTITIS, UNSPECIFIED SNOMED Code(s): 88019635 (2) Acute colitis Current Visit: No Status: Acute Code(s): K52.9 - NONINFECTIVE GASTROE NTERITIS AND COLITIS, UNSPECIFIED SNOMED Code(s): 71280760 Plan: Impression: 1. Medical debility. 2. Status post cholecystectomy, herniorrhaphy and partial colon resection. 3. Acute colitis. 4. Morbid obesity. 5. Hypertension. 6. History of cancer. Comments and plan: At this time OT are ongoing and PT prescribed. Safety concerns noted. Have discussed possible inpatient rehab with patient and family and all seem agreeable. Do not anticipate patient will be too good for inpatient rehab by Saturday.
[2018-07-18] MEDS: SODIUM CHLORIDE 0.9% 1,000 ML IV SCH (12:53)
[2018-07-18] MEDS: ATORVASTATIN 20 MG TAB PO SCH (21:58)
[2018-07-19] MEDS: PIPERACILLIN-TAZOBACTAM 3.375 GM in SODIUM CHLORIDE 0.9% 100 ML IVPB SCH ×3 (00:06→17:12)
[2018-07-19] MEDS: HEPARIN SODIUM,PORCINE 5,000 UNIT/ML 1 ML VIAL SQ SCH ×3 (00:12→17:19)
[2018-07-19] MEDS: cloNIDine HCL 0.1 MG TAB PO SCH ×3 (02:47→17:19)
[2018-07-19] MEDS: LACTATED RINGERS 1,000 ML IV SCH (02:47)
[2018-07-19] MEDS: HYDROcodone/APAP 5-325MG 1 EACH TAB PO PRN ×2 (04:50→17:26)
[2018-07-19 07:33] LABS: HCT 29.5 % (34.0-46.0); HGB 9.5 gm/dL (11.4-16.0); MCHC 32.1 g/dL (31.0-37.0); MCV 90.3 fL (80.0-100.0); Mean Platelet Volume 7.4; Platelet Count 210 k/uL (150-450); RBC 3.27 m/uL (3.80-5.40); RDW 14.1 % (11.5-15.5); WBC 12.2 k/uL (3.8-10.6)
[2018-07-19 07:43] LABS: ALT 37 U/L (9-52); AST 23 U/L (14-36); Albumin 2.4 g/dL (3.5-5.0); Alkaline Phosphatase 78 U/L (38-126); Anion Gap 4 mmol/L; Blood Urea Nitrogen 13 mg/dL (7-17); Calcium 8.6 mg/dL (8.4-10.2); Carbon Dioxide 27 mmol/L (22-30); Chloride 108 mmol/L (98-107); Glucose 105 mg/dL (74-99); Potassium 3.7 mmol/L (3.5-5.1); Sodium 139 mmol/L (137-145); Total Bilirubin 0.6 mg/dL (0.2-1.3); Total Protein 4.7 g/dL (6.3-8.2)
[2018-07-19] MEDS: ALVIMOPAN 12 MG CAPSULE PO SCH ×2 (10:38→20:06)
[2018-07-19] MEDS: hydrALAZINE HCL 25 MG TAB PO SCH ×2 (10:39→17:19)
[2018-07-19] MEDS: ATENOLOL 25 MG TAB PO SCH (10:39)
[2018-07-19] MEDS: FAMOTIDINE 20 MG TAB PO SCH (10:39)
[2018-07-19] MEDS: CHOLECALCIFEROL 1,000 UNIT TAB PO SCH (10:39)
[2018-07-19] MEDS: LISINOPRIL-HCTZ 10-12.5 MG 1 EACH TAB PO SCH ×2 (10:41→20:06)
[2018-07-19] MEDS: VIT A,C & E-LUTEIN-MINERALS 1 EACH TAB PO SCH (10:41)
--- NOTE | 2018-07-19 10:44 | P.PN ---
Progress Note - Text Progress Note Date: 07/19/18 The patient is doing well. She is a bleeding the hallway. She denies significant abdominal pain. On exam her vital signs are stable. Her abdomen soft. Incision site is clean dry tach. Status post low anterior resection for diverticulitis and cholecystectomy for cholecystitis/cholelithiasis. Patient stated well. We will advance her diet. We anticipate discharged to rehab on Saturday.
[2018-07-19] MEDS: SODIUM CHLORIDE 0.9% 1,000 ML IV SCH (17:55)
--- NOTE | 2018-07-19 18:02 | XR ---
EXAMINATION TYPE: XR chest 1V DATE OF EXAM: 07/19/2018 COMPARISON: 08/21/2009 HISTORY: Concern for aspiration. Shortness of breath. TECHNIQUE: Single frontal view of the chest is obtained. FINDINGS: There is a retrocardiac consolidation obscuring the left hemidiaphragm that may represent atelectasis or pneumonia. There is also concern for pneumoperitoneum versus colonic interposition and CT of the abdomen is recommended. Cardiomediastinal silhouette is mildly enlarged. Osseous structure s are generally demineralized. IMPRESSION: 1. Concern for pneumoperitoneum versus colonic interposition over the liver underneath the right jc diaphragm. CT abdomen is recommended. 2. Retrocardiac consolidation may represent atelectasis or pneumonia. Given its dependent location in the concern for aspiration, consultation with speech therapy could be utilized. A [place] level critical message alert has been initiated for Coryorestes Hari via the [email or web address] System on 07/19/2018 5:59 PM. This message alert has been sent to Leny Noriega via the preferences provided by the clinician for the receipt of Radiology Critical Findings. Message ID [id number].
[2018-07-19] MEDS ORDERED: IPRATROPIUM-ALBUTEROL 3 ML NEB INHALATION PRN (19:38)
[2018-07-19] MEDS: ATORVASTATIN 20 MG TAB PO SCH (20:06)
[2018-07-19] MEDS: IPRATROPIUM-ALBUTEROL 3 ML NEB INHALATION SCH (21:31)
--- NOTE | 2018-07-19 22:06 | PN ---
PROGRESS NOTE I am covering for Dr. Colon. DATE OF SERVICE: 07/19/2018 This 83-year-old woman who was admitted after cholecystitis also had element of hypertensive urgency. The patient underwent anterior resection of the diverticulitis and cholecystectomy. The patient is closely monitored at this time. The chest x-ray which was done today and evaluated by me showed some retrocardiac consolidation versus atelectasis was noted. The patient is being closely monitored at this time. No chest pain. No palpitations. PAST MEDICAL HISTORY: Reviewed. REVIEW OF SYSTEMS: Cardiovascular: S1, S2. Respiration: As mentioned earlier. GI: No nausea or vomiting. : No dysuria. CENTRAL NERVOUS SYSTEM: No focal deficits. CURRENT MEDICATIONS ARE: Reviewed and include: 1. [place] 5 mg q.4. 3. Tenormin 25 mg p.o. daily. 4. Lipitor 20 mg. 5. Cepacol. 6. Vitamin D. 7. Catapres p.r.n. t.i.d. 8. Zestoretic. 9. Apresoline p.r.n. 10.Reglan. 11.Zofran. 12.Zosyn IV. PHYSICAL EXAM: Patient is alert, oriented x3. Pulse 67, blood pressure 112/65, respiration 18, temperature 98.1, pulse ox 94% on room air. HEENT: Conjunctivae normal. Neck: No jugular venous distention. Cardiovascular: S1, S2 muffled. Respiratory: Breath sounds diminished in the bases. A few scattered rhonchi and crackles. Abdomen is soft, status post surgery. Legs are no edema. No swelling. Central nervous system: No focal deficits. LABS: WBC 12.2, hemoglobin 10.5. ASSESSMENT: 1. Status post low anterior resection for diverticulitis and as well as cholecystectomy for cholecystitis and cholelithiasis. 2. Hypertension. 3. Atelectasis. 4. Hypoalbuminemia. 5. Anemia. 6. Increased WBC. 7. History of degenerative joint disease. 8. History of anxiety. RECOMMENDATIONS AND DISCUSSION: In this 83-year-old woman who presented with multiple complex medical issues, at this time, I recommend to continue current medications, management and symptomatic treatment. Monitor blood pressure closely. I would also recommend IV antibiotics. I would also recommend bronchodilators and continue to monitor. Otherwise incentive spirometry. Increase ambulation. Diet per Surgery. Further recommendations to follow. MMBRINAL / IJN: [id number] / MTDD
[2018-07-20] MEDS: cloNIDine HCL 0.1 MG TAB PO SCH ×4 (02:25→21:21)
[2018-07-20] MEDS: hydrALAZINE HCL 25 MG TAB PO SCH ×4 (02:25→21:20)
[2018-07-20] MEDS: HYDROcodone/APAP 5-325MG 1 EACH TAB PO PRN ×2 (04:52→18:50)
[2018-07-20] MEDS: SODIUM CHLORIDE 0.9% 1,000 ML IV SCH (06:02)
[2018-07-20] MEDS: LACTATED RINGERS 1,000 ML IV SCH (06:02)
[2018-07-20] MEDS: IPRATROPIUM-ALBUTEROL 3 ML NEB INHALATION SCH ×3 (07:48→20:58)
[2018-07-20] MEDS: PIPERACILLIN-TAZOBACTAM 3.375 GM in SODIUM CHLORIDE 0.9% 100 ML IVPB SCH ×4 (09:20→17:53)
[2018-07-20] MEDS: HEPARIN SODIUM,PORCINE 5,000 UNIT/ML 1 ML VIAL SQ SCH ×3 (09:20→17:52)
[2018-07-20] MEDS: ALVIMOPAN 12 MG CAPSULE PO SCH ×2 (09:21→20:30)
[2018-07-20] MEDS: ATENOLOL 25 MG TAB PO SCH (09:21)
[2018-07-20] MEDS: CHOLECALCIFEROL 1,000 UNIT TAB PO SCH (09:21)
[2018-07-20] MEDS: VIT A,C & E-LUTEIN-MINERALS 1 EACH TAB PO SCH (09:22)
[2018-07-20] MEDS: LISINOPRIL-HCTZ 10-12.5 MG 1 EACH TAB PO SCH ×2 (09:22→20:30)
[2018-07-20] MEDS ORDERED: SODIUM CHLORIDE 0.9% 1,000 ML IV SCH (11:15)
--- NOTE | 2018-07-20 11:18 | P.PN ---
Progress Note - Text Progress Note Date: 07/20/18 The patient is resting comfortably in her bed. She is she is able to ambulate in the hallway. She has some mild incisional pain. On exam her vital signs are stable. Her abdomen soft. Incision site is clean dry tach. Status post low anterior resection for diverticulitis and open cholecystectomy for chronic cholecystitis cholelithiasis. Patient most likely be discharged to rehab tomorrow.
[2018-07-20] MEDS: FAMOTIDINE 20 MG TAB PO SCH (11:48)
[2018-07-20] MEDS ORDERED: FUROSEMIDE 10 MG/ML 2 ML VIAL IV ONE (15:40)
[2018-07-20] MEDS: ATORVASTATIN 20 MG TAB PO SCH (20:30)
--- NOTE | 2018-07-20 22:55 | PN ---
PROGRESS NOTE DATE OF SERVICE: 07/20/2018 I am covering for Dr. Colon. This 83-year-old woman was admitted with cholecystitis, also had element of hypertensive emergency and fluid overload also. The patient is being closely monitored at this time. The patient is on multiple IV fluids. Inpatient rehab and as well as Surgery is following the patient closely. Atelectasis also consider possibility. PAST MEDICAL HISTORY: Reviewed. REVIEW OF SYSTEM: Cardiovascular: No angina or palpitations. Respiration as mentioned earlier. GI: As mentioned earlier. : No dysuria. CENTRAL NERVOUS SYSTEM: No focal deficits. CURRENT MEDICATIONS: 1. [place] 5 mg q.6h. 2. DuoNeb q.i.d. and p.r.n. 3. Enteric. 4. Tenormin 25 mg daily. 5. Lipitor 20 mg q.h.s. 7. Vitamin D3. 8. Catapres 0.3 t.i.d. 9. Pepcid. 10.Zestoretic 01/31.5 p.o. b.i.d. 11.Heparin 5000 subcu q.8h. 12.Apresoline. 13.Dilaudid. 14.Reglan. 15.I-Rodrigo. 16.Zofran. 17.P.r.n. medication. 18.IV Zosyn. PHYSICAL EXAM: Patient is alert, oriented x3. Pulse is 71, blood pressure 140/80, respirations 18, temperature normal. Pulse ox 94% on room air. HEENT: Conjunctivae normal. Oral mucosa moist. Neck is no jugular venous distention. No carotid bruit. No lymph node enlargement. Cardiovascular systems: S1, S2 muffled. Respirations: Breath sounds diminished in the bases. Bilateral scattered rhonchi and crackles. Expiratory wheezing also present. ABDOMEN: Soft, status post surgery. Legs are no edema, no swelling. Nervous system: No focal deficits. LABS: WBC 12.2, hemoglobin 9.5, albumin is 2.4. Other labs are noted. ASSESSMENT: 1. Status post low anterior resection for diverticulitis as well as cholecystectomy for cholecystitis and cholelithiasis. 2. Mild fluid overload. 3. Atelectasis bilaterally. 4. Hypertension. 5. Hypoalbuminemia. 6. Anemia. 7. Increased WBC. 8. History of degenerative joint disease. 9. History of anxiety. 10.Obesity with body mass index of 34. 11.FULL CODE. RECOMMENDATIONS AND DISCUSSION: In this 83-year-old woman who presented with multiple complex medical issues, at this time, I recommend to continue current medications, management and continue the symptomatic treatment, continue bronchodilators. Continue the rest of the medications, DVT prophylaxis. I would also recommend a small dose of diuretics. Monitor fluid and electrolyte balance closely. Repeat lytes in the morning. Closely follow with surgery and Dr. Colon will follow tomorrow. MMBRINAL / IJN: [id number] / MTDD
[2018-07-21] MEDS: PIPERACILLIN-TAZOBACTAM 3.375 GM in SODIUM CHLORIDE 0.9% 100 ML IVPB SCH ×2 (00:37→11:37)
[2018-07-21] MEDS: HEPARIN SODIUM,PORCINE 5,000 UNIT/ML 1 ML VIAL SQ SCH ×2 (00:40→08:06)
[2018-07-21] MEDS: SODIUM CHLORIDE 0.9% 1,000 ML IV SCH (00:44)
[2018-07-21] MEDS: HYDROcodone/APAP 5-325MG 1 EACH TAB PO PRN ×2 (03:29→16:30)
[2018-07-21] MEDS: LACTATED RINGERS 1,000 ML IV SCH (04:56)
--- NOTE | 2018-07-21 07:43 | P.PN ---
Subjective Principal diagnosis: Status post cholecystectomy This is a continue progress note on an 83-year-old white female's postop day #64 cholecystitis and low anterior resection. The patient is doing well. Blood pressure is not nominal. Objective - Vital Signs Vital signs: Vital Signs Temp 97.5 F L 07/21/18 01:29 Pulse 60 07/21/18 01:29 Resp 18 07/21/18 01:29 BP 155/74 07/21/18 01:29 Pulse Ox 97 07/21/18 01:29 Intake & Output 07/20/18 07/21/18 07/21/18 18:59 06:59 18:59 Intake Total 160 780 Balance 160 780 Intake: IV 160 200 Sodium Chloride 0.9% 1, 160 200 000 ml @ 20 mls/hr IV . Q24H [facility]ANG Rx#:[id number] Intake, IV Titration 100 Amount Piperacillin-Tazobactam 3 100 .375 gm In Sodium Chloride 0.9% 100 ml @ 25 mls/hr IVPB Q8HR [facility] Rx# :[id number] Oral 0 480 Other: Voiding Method Toilet # Voids 2 2 - Constitutional General appearance: Present: average body habitus - EENT Eyes: Absent: abnormal pupil - Respiratory Respiratory: bilateral: CTA - Cardiovascular Heart sounds: normal: S1, S2 Abnormal Heart Sounds: Absent: S3 Gallop - Gastrointestinal General gastrointestinal: Present: soft - Labs CBC & Chem 7: 07/19/18 06:41 07/19/18 06:41 Labs: Microbiology - Last 24 Hours (Table) 07/19/18 18:23 Urine Culture - Preliminary Urine,Voided Yeast species Assessment and Plan (1) Acute colitis Current Visit: No Status: Acute Code(s): K52.9 - NONINFECTIVE GASTROENTERITIS AND COLITIS, UNSPECIFIED SNOMED Code(s): 66077876 (2) HTN (hypertension) Current Visit: No Status: Acute Code(s): I10 - ESSENTIAL (PRIMARY) HYPERTENSION SNOMED Code(s): 09237080 (3) Hyperlipemia Current Visit: No Status: Acute Code(s): E78.5 - HYPERLIPIDEMIA, UNSPECIFIED SNOMED Code(s): 56182744 Plan: Continue current regimen of treatment. Anticipate discharge today. Patient is to follow-up with me in 7-10 days. Time with Patient: Less than 30
[2018-07-21 07:44] VITALS: RESP 16
[2018-07-21 07:54] LABS: Basophils # (A) 0.1 k/uL (0-0.2); Basophils % (A) 1 %; Eosinophils # (A) 0.8 k/uL (0-0.7); Eosinophils % (A) 7 %; HGB 10.1 gm/dL (11.4-16.0); Lymphocytes # (A) 1.3 k/uL (1.0-4.8); Lymphocytes % (A) 11 %; MCH 28.5 pg (25.0-35.0); MCHC 31.5 g/dL (31.0-37.0); MCV 90.4 fL (80.0-100.0); Mean Platelet Volume 6.9; Monocytes # (A) 0.5 k/uL (0-1.0); Monocytes % (A) 5 %; Neutrophils # (A) 8.7 k/uL (1.3-7.7); Neutrophils % (A) 76 %; Platelet Count 293 k/uL (150-450); RBC 3.54 m/uL (3.80-5.40); WBC 11.4 k/uL (3.8-10.6)
[2018-07-21] MEDS: LISINOPRIL-HCTZ 10-12.5 MG 1 EACH TAB PO SCH (08:06)
[2018-07-21] MEDS: cloNIDine HCL 0.1 MG TAB PO SCH (08:06)
[2018-07-21] MEDS: CHOLECALCIFEROL 1,000 UNIT TAB PO SCH (08:06)
[2018-07-21] MEDS: ATENOLOL 25 MG TAB PO SCH (08:06)
[2018-07-21] MEDS: ALVIMOPAN 12 MG CAPSULE PO SCH (08:06)
[2018-07-21 08:30] LABS: Anion Gap 7 mmol/L; Blood Urea Nitrogen 11 mg/dL (7-17); Carbon Dioxide 27 mmol/L (22-30); Chloride 108 mmol/L (98-107); Glucose 104 mg/dL (74-99); Potassium 3.5 mmol/L (3.5-5.1); Sodium 142 mmol/L (137-145)
[2018-07-21] MEDS: IPRATROPIUM-ALBUTEROL 3 ML NEB INHALATION SCH ×2 (08:56→13:14)
--- NOTE | 2018-07-21 09:35 | P.DS ---
Providers Date of admission: 07/15/18 09:33 Expected date of discharge: 07/21/18 Attending physician: Wyatt Camp Consults: 07/15/18 13:50 Consult Physician Routine Consulting Provider: Joe Colon Consult Reason/Comments: Management Do you want consulting provider notified?: Yes 07/18/18 08:43 Consult Physician Routine Consulting Provider: Kash Tabares Consult Reason/Comments: evaluate for inpatient rehab Do you want consulting provider notified?: Yes Primary care physician: Joe Colon Hospital Course: 83-year-old female who is status post laparoscopic cholecystectomy, low anterior resection, repair of incarcerated incisional hernia, and partial omentectomy. Patient doing well postoperatively without any immediate complications. Her vital signs are stable. She is tolerating diet. Denies nausea or vomiting. Reports having bowel movements. Patient is stable for discharge to rehab today. Please see EMR for further hospital course details. Discharge Diagnosis: 1. Cholelithiasis & diverticulitis, status post laparoscopic cholecystectomy, low anterior resection, repair of incarcerated incisional hernia, and partial omentectomy Nurse practitioner note has been reviewed by physician. Signing provider agrees with the documented findings, assessment, and plan of care. Plan - Discharge Summary Discharge Rx Participant: Yes New Discharge Prescriptions: No Action Lisinopril-Hctz 10-12.5 mg [Zestoretic 10-12.5] 1 tab PO BID cloNIDine HCL [Catapres] 0.2 mg PO TID Atenolol [Tenormin] 25 mg PO DAILY hydrALAZINE HCL 50 mg PO TID Vit A,C & E/Lutein/Minerals [Ocuvite Tablet] 1 tab PO DAILY Atorvastatin [Lipitor] 20 mg PO HS Aspirin [Adult Low Dose Aspirin EC] 81 mg PO DAILY Cholecalciferol [Vitamin D3] 1,000 unit PO DAILY Discharge Medication List Atenolol [Tenormin] 25 mg PO DAILY 10/27/13 [History] Lisinopril-Hctz 10-12.5 mg [Zestoretic 10-12.5] 1 tab PO BID 10/27/13 [History] cloNIDine HCL [Catapres] 0.2 mg PO TID 10/27/13 [History] hydrALAZINE HCL 50 mg PO TID 10/27/13 [History] Vit A,C & E/Lutein/Minerals [Ocuvite Tablet] 1 tab PO DAILY 12/16/13 [History] Aspirin [Adult Low Dose Aspirin EC] 81 mg PO DAILY 06/27/18 [History] Atorvastatin [Lipitor] 20 mg PO HS 06/27/18 [History] Cholecalciferol [Vitamin D3] 1,000 unit PO DAILY 07/11/18 [History]
[2018-07-21] MEDS: FAMOTIDINE 20 MG TAB PO SCH (11:07)
[2018-07-21] MEDS: hydrALAZINE HCL 25 MG TAB PO SCH (11:07)
[2018-07-21] MEDS: VIT A,C & E-LUTEIN-MINERALS 1 EACH TAB PO SCH (11:37)
[2018-07-21 14:40] VITALS: BP 142/75; PULSE 63; TEMP 97.9
--- NOTE | 2018-07-21 14:58 | CT ---
EXAMINATION TYPE: CT abdomen wo con DATE OF EXAM: 07/21/2018 COMPARISON: Prior CT 06/26/2018, chest x-ray 07/19/2018 HISTORY: Abnormal cxr. CT DLP: 539 mGycm Automated exposure control for dose reduction was used. TECHNIQUE: Helical acquisition of images was performed from the lung bases through the top of iliac crest to include entire abdomen. CONTRAST: Performed without Oral Contrast and without IV contrast. FINDINGS: Lack of contrast may compromise the sensitivity of the exam. There are some coronary artery calcifications present. No evident pneumoperitoneum. Postop changes are noted along the anterior abd ominal wall. LUNG BASES: There is been interval development of small bilateral pleural effusions and probable asso ciated atelectasis, correlate to exclude pneumonia. LIVER/GB: Patient is post cholecystectomy. Small amount of fluid is present in the gallbladder fossa which is likely postoperative, punctate focus of air also present, correlate for recent surgery and f ollow-up as indicated. PANCREAS: No significant abnormality is seen. SPLEEN: No significant abnormality is seen. ADRENALS: No significant abnormality is seen. KIDNEYS: No significant abnormality is seen. BOWEL: Possible duodenal diverticulum at the head of the pancreas level.. LYMPH NODES: No significant abnormality is appreciated. OSSEOUS STRUCTURES: There is a spinal curvature, degenerative disc changes are present in the visual ized spine. Facet arthropathy also present in the lower lumbar spine. FREE AIR: No Free Air visible ASCITES: None visible. RETROPERITONEAL ADENOPATHY: No Retroperitoneal Adenopathy visible. OTHER: There are changes of anasarca present. IMPRESSION: POSTOP CHANGES. INTERVAL DEVELOPMENT OF PLEURAL EFFUSIONS.
[2018-07-21] MEDS ORDERED: TRIAMCINOLONE 0.1% CREAM 80 GM TUBE TOPICAL SCH (21:00)
== END 2018-07-21 16:25 | DRG 330 ==
LOC: 2ORMAIN 09:33 → 4SSUR 13:52
PROVIDERS: ADMIT Surgery; ATTEND Surgery
PROC: 0WQF0ZZ Repair Abdominal Wall, Open Approach (ICD-10-PCS; 2018-07-15)
PROC: 0DBU0ZZ Excision of Omentum, Open Approach (ICD-10-PCS; 2018-07-15)
PROC: 0DBN0ZZ Excision of Sigmoid Colon, Open Approach (ICD-10-PCS; principal; 2018-07-15 11:15)
PROC: 0FT44ZZ Resection of Gallbladder, Percutaneous Endoscopic Approach (ICD-10-PCS; 2018-07-15 11:15)
DX: K57.32 Diverticulitis of large intestine without perforation or abscess without bleeding (principal); K80.10 Calculus of gallbladder with chronic cholecystitis without obstruction; I16.1 Hypertensive emergency; K43.0 Incisional hernia with obstruction, without gangrene; J98.11 Atelectasis; E87.70 Fluid overload, unspecified; E88.09 Other disorders of plasma-protein metabolism, not elsewhere classified; E66.01 Morbid (severe) obesity due to excess calories; I35.0 Nonrheumatic aortic (valve) stenosis; D64.9 Anemia, unspecified; K82.8 Other specified diseases of gallbladder; M19.90 Unspecified osteoarthritis, unspecified site; I10 Essential (primary) hypertension; E78.5 Hyperlipidemia, unspecified; F41.9 Anxiety disorder, unspecified; K59.00 Constipation, unspecified; L98.9 Disorder of the skin and subcutaneous tissue, unspecified; Z68.34 Body mass index [BMI] 34.0-34.9, adult; Z79.82 Long term (current) use of aspirin; Z79.899 Other long term (current) drug therapy; Z90.710 Acquired absence of both cervix and uterus; Z85.828 Personal history of other malignant neoplasm of skin; Z96.642 Presence of left artificial hip joint; Z96.651 Presence of right artificial knee joint; Z87.19 Personal history of other diseases of the digestive system; Z82.49 Family history of ischemic heart disease and other diseases of the circulatory system
CPT/HCPCS: 71045; 74150; 80048; 80053; 85025; 85027; 86850; 86900; 86901; 87086; 87324; 88304; 88307; 94640; 94760

== ENCOUNTER → 2019-05-22 | Outpatient (CLI) | payer MEDICARE, BC ==
[2019-05-22 11:31] LABS: Basophils # (A) 0.1 k/uL (0-0.2); Basophils % (A) 1 %; Eosinophils # (A) 0.3 k/uL (0-0.7); Eosinophils % (A) 4 %; HCT 39.4 % (34.0-46.0); HGB 12.4 gm/dL (11.4-16.0); Lymphocytes # (A) 1.3 k/uL (1.0-4.8); Lymphocytes % (A) 15 %; MCH 28.7 pg (25.0-35.0); MCHC 31.6 g/dL (31.0-37.0); MCV 90.9 fL (80.0-100.0); Mean Platelet Volume 7.5; Monocytes # (A) 0.4 k/uL (0-1.0); Monocytes % (A) 5 %; Neutrophils # (A) 6.3 k/uL (1.3-7.7); Neutrophils % (A) 74 %; Platelet Count 227 k/uL (150-450); RBC 4.33 m/uL (3.80-5.40); RDW 13.7 % (11.5-15.5); WBC 8.6 k/uL (3.8-10.6)
== END | disposition home or self-care (01) ==
LOC: LABPAT 10:28
PROVIDERS: ATTEND Surgery
DX: Z01.818 Encounter for other preprocedural examination (principal); Z01.812 Encounter for preprocedural laboratory examination; K43.0 Incisional hernia with obstruction, without gangrene
CPT/HCPCS: 85025; 86850; 86900; 86901; 93005

== ENCOUNTER → 2019-06-23 | Outpatient (CLI) | payer MEDICARE, BC ==
[2019-06-23 18:08] LABS: HCT 38.6 % (34.0-46.0); HGB 12.3 gm/dL (11.4-16.0); MCH 28.7 pg (25.0-35.0); MCHC 31.8 g/dL (31.0-37.0); MCV 90.3 fL (80.0-100.0); Mean Platelet Volume 7.2; Platelet Count 331 k/uL (150-450); RBC 4.28 m/uL (3.80-5.40); RDW 13.8 % (11.5-15.5); WBC 12.4 k/uL (3.8-10.6)
[2019-06-24 00:51] LABS: African American GFR (CKD) 59.5 (60.0-200.0); Albumin 3.9 g/dL (3.80-4.90); Albumin/Globulin Ratio 1.86 (1.60-3.17); Anion Gap 10.4 mmol/L (4.00-12.00); Calcium 9.5 mg/dL (8.7-10.3); Carbon Dioxide 28.6 mmol/L (21.6-31.8); Globulin 2.1 g/dL (1.6-3.3); Non-African American GFR(CKD) 51.3 (60.0-200.0); Potassium 4.5 mmol/L (3.5-5.5); Total Bilirubin 0.2 mg/dL (0.2-1.2)
== END | disposition home or self-care (01) ==
LOC: LABWHC1 17:19
PROVIDERS: ATTEND Surgery
DX: S30.1XXA Contusion of abdominal wall, initial encounter (principal)
CPT/HCPCS: 36415; 80053; 85027

== ENCOUNTER → 2019-08-10 | Outpatient (CLI) | payer MEDICARE, BC ==
--- NOTE | 2019-08-10 10:17 | US ---
EXAMINATION TYPE: US abdomen limited DATE OF EXAM: 08/10/2019 COMPARISON: EXAMINATION TYPE: US abdomen limited DATE OF EXAM: 08/10/2019 COMPARISON: NONE CLINICAL HISTORY: T88.8XXD Abdominal wall seroma. Hernia surgery 2 month ago, on going lower abdomina l wall seroma Midline lower abdomen: 17.1 x 11.5 x 13.0cm complex seroma IMPRESSION: Midline lower abdomen: 17.1 x 11.5 x 13.0cm complex seroma. Infected collection not excl uded.
== END | disposition home or self-care (01) ==
LOC: RADUSWWP 09:27
PROVIDERS: ATTEND Surgery
DX: T88.8XXD Other specified complications of surgical and medical care, not elsewhere classified, subsequent encounter (principal)
CPT/HCPCS: 76705

== ENCOUNTER 2019-08-12 07:01 | Day surgery (SDC) | payer MEDICARE, BC ==
[~2019-08-12 07:01] MED LIST changes: +ACETAMINOPHEN TAB 500 MG TAB PO ONE; -DEXAMETHASONE SOD PHOSPHATE 10 MG/ML 1 ML VIAL IV ONE; -HYDROmorphone 0.5 MG/0.5 ML SYRINGE IVP PRN; -MIDAZOLAM (PF) 2 MG/2 ML VIAL IV PRN; +Pre Op ABX Message 1 EACH MISC MISCELLANE ONE; -ceFAZolin IN SWFI 2 GM/20 ML SYRINGE IVP ONE; +fentaNYL (PF) 50 MCG/ML 2 ML AMP IV PRN; -metroNIDAZOLE-NS PMX 500 MG in SALINE 1 100ML.BAG IVPB ONE
[2019-08-12] MEDS: LACTATED RINGERS 1,000 ML IV SCH ×3 (07:22→16:19)
[2019-08-12] MEDS ORDERED: LIDOCAINE 1% (10MG/ML) FOR IV START SQ ONE (07:26)
[2019-08-12] MEDS ORDERED: DEXAMETHASONE SOD PHOSPHATE 10 MG/ML 1 ML VIAL IV ONE (07:26)
[2019-08-12 07:40] LABS: Glucose,Whole Blood 106 mg/dL (75-99)
[2019-08-12] MEDS ORDERED: hydrALAZINE HCL 20 MG/ML 1 ML VIAL IVP ONE (07:54)
[2019-08-12] MEDS ORDERED: MIDAZOLAM 2 MG/2 ML VIAL ONE (08:03)
[2019-08-12] MEDS ORDERED: fentaNYL (PF) 50 MCG/ML 2 ML AMP ONE (08:03)
[2019-08-12] MEDS ORDERED: PROPOFOL 10 MG/ML 20 ML VIAL IV ONE (08:03)
[2019-08-12] MEDS ORDERED: LIDOCAINE 1% INJ 10MG/ML (20 ML MDV) ONE (08:03)
[2019-08-12] MEDS ORDERED: SUCCINYLCHOLINE CHLORIDE 100 MG/5 ML SYR IV ONE (08:03)
--- NOTE | 2019-08-12 08:16 | P.GSHP ---
History of Present Illness H&P Date: 08/12/19 Chief Complaint: Chronic abdominal wall seroma This 74-year-old female who presents today for incision and drainage and possible removal of abdominal wall mesh. Patient has had chronic abdominal wall seroma. Patient has had a seroma for approximately 8 weeks. Patient had excellent we will remove her HERBIE drain immediately postop. Patient has had intermittent aspirations a seroma. However seroma was not resolving. Patient will undergo incision and drainage and possible placement of wound VAC today. Past Medical History Past Medical History: Cancer, Hyperlipidemia, Hypertension, Skin Disorder Additional Past Medical History / Comment(s): HX SKIN CANCER , DIVERTICULITIS, GALL STONE, STATES SHE WEARS A RIGHT ANKLE BRACE AND USES A CANE. ABDOMINAL WOUND-POST HERNIA SX History of Any Multi-Drug Resistant Organisms: None Reported Past Surgical History: Appendectomy, Bowel Resection, Hernia Repair, Hysterectomy, Joint Replacement Additional Past Surgical History / Comment(s): LT ALBINO, RT TKA, Skin cancer removed on back , COLONOSCOPY. bladder lift. Past Anesthesia/Blood Transfusion Reactions: No Reported Reaction Smoking Status: Never smoker - Past Family History Mother Family Medical History: No Reported History Medications and Allergies Home Medications Medication Instructions Recorded Confirmed Type Lisinopril-Hctz 10-12.5 mg 1 tab PO BID 10/27/13 08/12/19 History [Zestoretic 10-12.5] cloNIDine HCL [Catapres] 0.2 mg PO TID 10/27/13 08/12/19 History hydrALAZINE HCL 50 mg PO TID 10/27/13 08/12/19 History Vit A,C & E/Lutein/Minerals 1 tab PO DAILY 12/16/13 08/12/19 History [Ocuvite Tablet] Aspirin [Adult Low Dose Aspirin EC] 81 mg PO DAILY 06/27/18 08/12/19 History Atorvastatin [Lipitor] 20 mg PO HS 06/27/18 08/12/19 History Calcium Carbonate/Vitamin D3 1 each PO DAILY 05/26/19 08/12/19 History [Calcium 600-Vit D3 800 Caplet] Hydrocodone/Acetaminophen [[place] 1 tab PO Q6HR PRN #10 tab 05/28/19 08/12/19 Rx 5-325] Apixaban [Eliquis] 5 mg PO BID #180 tab 06/01/19 08/12/19 Rx Atenolol [Tenormin] 50 mg PO DAILY #30 tab 06/02/19 08/12/19 Rx Furosemide [Lasix] 20 mg PO DAILY 08/12/19 08/12/19 History Allergies Allergy/AdvReac Type Severity Reaction Status Date / Time No Known Allergies Allergy Verified 08/12/19 07:18 Surgical - Exam Vital Signs Temp Pulse Resp BP Pulse Ox 97.7 F 63 17 216/101 98 08/12/19 07:21 08/12/19 07:21 08/12/19 07:21 08/12/19 07:21 08/12/19 07:21 - General well developed, well nourished, no distress - Eyes PERRL - ENT normal pinna - Neck no masses - Respiratory normal expansion - Cardiovascular Rhythm: regular - Abdomen Abdominal wall seroma located over the midline scar Abdomen: soft, non tender Results - Labs Abnormal Lab Results - Last 24 Hours (Table) 08/12/19 Range/Units 07:27 POC Glucose (mg/dL) 106 H (75-99) mg/dL Assessment and Plan Assessment: Abdominal seroma. We'll perform incision and drainage and possible removal of mesh and placement of wound VAC.
[2019-08-12] MEDS ORDERED: ACETAMINOPHEN TAB 325 MG TAB PO PRN (09:03)
[2019-08-12] MEDS ORDERED: HYDROcodone/APAP 5-325MG 1 EACH TAB PO PRN (09:03)
[2019-08-12] MEDS ORDERED: HYDROmorphone 0.5 MG/0.5 ML SYRINGE IVP PRN (09:03)
[2019-08-12] MEDS ORDERED: ONDANSETRON 4 MG/2 ML VIAL IVP PRN (09:03)
[2019-08-12] MEDS ORDERED: NALOXONE 0.4 MG/ML 1 ML VIAL IV PRN (09:03)
[2019-08-12] MEDS ORDERED: LACTATED RINGERS 1,000 ML IV ONE (09:03)
--- NOTE | 2019-08-12 09:03 | P.OP ---
Date of Procedure: 08/12/19 Preoperative Diagnosis: Abdominal wall seroma Postoperative Diagnosis: Abdominal wall seroma Procedure(s) Performed: Incision and drainage of abdominal wall seroma Placement of wound VAC Anesthesia: WINSOME Surgeon: Wyatt Camp Estimated Blood Loss (ml): 5 Pathology: other (Culture) Condition: stable Disposition: PACU Description of Procedure: Patient's placed on the operating table in supine position. She received general anesthesia. Her abdomen was prepped and draped usual sterile fashion. Using left cautery incision was made over her low midline scar. The seroma cavity was then entered. Approximately 1000 mL of seroma fluid was aspirated. The incision was extended. The hernia repair was fully visualized. There appeared to be tissue coverage of the mesh. The mesh was not exposed. The seroma did not appear to be infected. There is no evidence of any purulent fluid. The seroma was serosanguineous in nature. A culture of the seroma cavity was performed. The scope Was then irrigated with 2 L of normal saline. Next the black foam for the wound VAC was placed in the wound. 2 pieces of foam right trimmed to appropriate size and placed in the wound. And then the wound VAC was applied. Patient top procedure well and was sent to recovery room stable condition.
--- NOTE | 2019-08-12 11:48 | P.CONS ---
History of Present Illness - Reason for Consult Consult date: 08/12/19 Wound care - History of Present Illness This is an 84-year-old pleasant female being seen by the wound care center on [address]. post incision and drainage and removal of abdominal wall mesh. Patient has had a chronic abdominal wall seroma. At this time patient has a wound VAC in place. Patient has no complaints or concerns at this time. Past medical history significant for hyperlipidemia, hypertension, skin cancer, diverticulitis, hernia repair, bowel resection. Patient denies history of diabetes. Patient is a nonsmoker. Review of Systems Review Of Systems: Constitutional: No fever, no chills, no night sweats. No weight change. No weakness, fatigue or lethargy. No daytime sleepiness. Integumentary:reports wounds, no lesions. No rash or pruritus. No unusual bruising. No change in hair or nails. Past Medical History Past Medical History: Cancer, Hyperlipidemia, Hypertension, Skin Disorder Additional Past Medical History / Comment(s): HX SKIN CANCER , DIVERTICULITIS, GALL STONE, STATES SHE WEARS A RIGHT ANKLE BRACE AND USES A CANE. ABDOMINAL WOUND-POST HERNIA SX History of Any Multi-Drug Resistant Organisms: None Reported Past Surgical History: Appendectomy, Bowel Resection, Hernia Repair, Hysterectomy, Joint Replacement Additional Past Surgical History / Comment(s): LT ALBINO, RT TKA, Skin cancer removed on back , COLONOSCOPY. bladder lift. Past Anesthesia/Blood Transfusion Reactions: No Reported Reaction Past Psychological History: No Psychological Hx Reported, Anxiety Additional Psychological History / Comment(s): does not take medication for. Smoking Status: Never smoker Past Alcohol Use History: None Reported Past Drug Use History: None Reported - Past Family History Mother Family Medical History: No Reported History Medications and Allergies Home Medications Medication Instructions Recorded Confirmed Type Lisinopril-Hctz 10-12.5 mg 1 tab PO BID 10/27/13 08/12/19 History [Zestoretic 10-12.5] cloNIDine HCL [Catapres] 0.2 mg PO TID 10/27/13 08/12/19 History hydrALAZINE HCL 50 mg PO TID 10/27/13 08/12/19 History Vit A,C & E/Lutein/Minerals 1 tab PO DAILY 12/16/13 08/12/19 History [Ocuvite Tablet] Aspirin [Adult Low Dose Aspirin EC] 81 mg PO DAILY 06/27/18 08/12/19 History Atorvastatin [Lipitor] 20 mg PO HS 06/27/18 08/12/19 History Calcium Carbonate/Vitamin D3 1 each PO DAILY 05/26/19 08/12/19 History [Calcium 600-Vit D3 800 Caplet] Hydrocodone/Acetaminophen [[place] 1 tab PO Q6HR PRN #10 tab 05/28/19 08/12/19 Rx 5-325] Apixaban [Eliquis] 5 mg PO BID #180 tab 06/01/19 08/12/19 Rx Atenolol [Tenormin] 50 mg PO DAILY #30 tab 06/02/19 08/12/19 Rx Furosemide [Lasix] 20 mg PO DAILY 08/12/19 08/12/19 History Allergies Allergy/AdvReac Type Severity Reaction Status Date / Time No Known Allergies Allergy Verified 08/12/19 07:18 Physical Exam Vitals: Vital Signs Temp Pulse Resp BP Pulse Ox 08/12/19 10:45 59 L 171/76 08/12/19 10:25 60 158/74 08/12/19 10:05 96.7 F L 63 16 138/78 95 08/12/19 09:45 61 16 148/74 95 08/12/19 09:30 59 L 18 161/72 96 08/12/19 09:15 59 L 16 174/79 95 08/12/19 09:00 67 16 148/72 95 08/12/19 08:57 97.8 F 61 14 150/72 94 L 08/12/19 08:02 64 17 203/91 96 08/12/19 07:58 64 17 196/93 97 08/12/19 07:40 65 17 212/97 98 08/12/19 07:30 64 17 227/88 97 08/12/19 07:21 97.7 F 63 17 216/101 98 Intake and Output 08/11/19 08/12/19 08/12/19 22:59 06:59 14:59 Intake Total 450 Output Total 5 Balance 445 Intake: IV 450 Output: Estimated Blood Loss 5 Other: Weight 86.5 kg Physical exam: General Appearance: Alert, cooperative, no distress, appears stated age. Skin: Midline abdominal ulceration with negative pressure wound therapy Black foam a continuous. all other Skin color, texture, tugor normal, no rashes or lesions. Neurologic: Alert oriented x3 Results Labs: Abnormal Lab Results - Last 24 Hours (Table) 08/12/19 Range/Units 07:27 POC Glucose (mg/dL) 106 H (75-99) mg/dL Assessment and Plan (1) Non-pressure chronic ulcer of skin of other sites with fat layer exposed Current Visit: Yes Status: Acute Code(s): L98.492 - NON-PRS CHRONIC ULCER OF SKIN OF SITES W FAT LAYER EXPOSED SNOMED Code(s): 54631021 Plan: Continue with the negative pressure wound therapy utilizing black foam at continuous suction at 125 mmHg. Patient to continue with the wound VAC at home. Consult home care to facilitate wound VAC. During the transition from inpatient to outpatient utilize absorptive silver rope, saline moistened gauze, dry gauze, ABDs and secured with paper tape. Restart the wound VAC once available in the outpatient setting. Patient to follow-up in the wound care center to assist with management of the wound VAC. Patient was agreeable and verbalized understanding. Thank you kindly for the consultation. Any questions please contact the wound care center DNP note has been reviewed and discussed with Dr. Tejada and the impression and plan of care has been directed as dictated.
[2019-08-12] MEDS: PIPERACILLIN-TAZOBACTAM 3.375 GM in SODIUM CHLORIDE 0.9% 100 ML IVPB SCH ×2 (16:22→23:10)
[2019-08-12] MEDS: ATENOLOL 50 MG TAB PO SCH (17:34)
[2019-08-12] MEDS ORDERED: ATORVASTATIN 20 MG TAB PO SCH (21:00)
[2019-08-12] MEDS: LISINOPRIL-HCTZ 10-12.5 MG 1 EACH TAB PO SCH (21:14)
[2019-08-12] MEDS: cloNIDine HCL 0.2 MG TAB PO SCH (21:14)
[2019-08-12] MEDS: hydrALAZINE HCL 50 MG TAB PO SCH (22:16)
[2019-08-13 05:50] VITALS: BP 165/70; PULSE 56; RESP 22; TEMP 97.8
[2019-08-13] MEDS: PIPERACILLIN-TAZOBACTAM 3.375 GM in SODIUM CHLORIDE 0.9% 100 ML IVPB SCH (07:50)
[2019-08-13] MEDS: LISINOPRIL-HCTZ 10-12.5 MG 1 EACH TAB PO SCH (07:51)
[2019-08-13] MEDS: hydrALAZINE HCL 50 MG TAB PO SCH (07:51)
[2019-08-13] MEDS: cloNIDine HCL 0.2 MG TAB PO SCH (07:51)
[2019-08-13] MEDS: ATENOLOL 50 MG TAB PO SCH (07:51)
--- NOTE | 2019-08-13 08:20 | P.CONS ---
History of Present Illness - Reason for Consult Consult date: 08/13/19 - Chief Complaint Medical medical management - History of Present Illness This is an 84-year-old white female with history of hypertension who has seroma of the abdomen area. She is postop day #1 for seroma repair with infection. She's doing quite well. Minimal pain. DVT prophylaxis is done. I reconciled her medication. She states no significant pain. No voiding difficulties are noted. No sniffing nausea, vomiting or diarrhea. Review of Systems Constitutional: Denies chills, Denies fever Eyes: denies blurred vision, denies pain Ears, nose, mouth and throat: Denies headache, Denies sore throat Cardiovascular: Denies chest pain, Denies shortness of breath Gastrointestinal: Reports as per HPI Genitourinary: Denies dysuria, Denies hematuria Musculoskeletal: Denies myalgias Past Medical History Past Medical History: Cancer, Hyperlipidemia, Hypertension, Skin Disorder Additional Past Medical History / Comment(s): HX SKIN CANCER , DIVERTICULITIS, GALL STONE, STATES SHE WEARS A RIGHT ANKLE BRACE AND USES A CANE. ABDOMINAL WOUND-POST HERNIA SX History of Any Multi-Drug Resistant Organisms: None Reported Past Surgical History: Appendectomy, Bowel Resection, Hernia Repair, Hysterectomy, Joint Replacement Additional Past Surgical History / Comment(s): LT ALBINO, RT TKA, Skin cancer removed on back , COLONOSCOPY. bladder lift. Past Anesthesia/Blood Transfusion Reactions: No Reported Reaction Past Psychological History: No Psychological Hx Reported, Anxiety Additional Psychological History / Comment(s): does not take medication for. Smoking Status: Never smoker Past Alcohol Use History: None Reported Past Drug Use History: None Reported - Past Family History Mother Family Medical History: No Reported History Medications and Allergies Home Medications Medication Instructions Recorded Confirmed Type Lisinopril-Hctz 10-12.5 mg 1 tab PO BID 10/27/13 08/12/19 History [Zestoretic 10-12.5] cloNIDine HCL [Catapres] 0.2 mg PO TID 10/27/13 08/12/19 History hydrALAZINE HCL 50 mg PO TID 10/27/13 08/12/19 History Vit A,C & E/Lutein/Minerals 1 tab PO DAILY 12/16/13 08/12/19 History [Ocuvite Tablet] Aspirin [Adult Low Dose Aspirin EC] 81 mg PO DAILY 06/27/18 08/12/19 History Atorvastatin [Lipitor] 20 mg PO HS 06/27/18 08/12/19 History Calcium Carbonate/Vitamin D3 1 each PO DAILY 05/26/19 08/12/19 History [Calcium 600-Vit D3 800 Caplet] Hydrocodone/Acetaminophen [[place] 1 tab PO Q6HR PRN #10 tab 05/28/19 08/12/19 Rx 5-325] Apixaban [Eliquis] 5 mg PO BID #180 tab 06/01/19 08/12/19 Rx Atenolol [Tenormin] 50 mg PO DAILY #30 tab 06/02/19 08/12/19 Rx Furosemide [Lasix] 20 mg PO DAILY 08/12/19 08/12/19 History Allergies Allergy/AdvReac Type Severity Reaction Status Date / Time No Known Allergies Allergy Verified 08/12/19 07:18 Physical Exam Vitals: Vital Signs Temp Pulse Resp BP Pulse Ox 08/13/19 05:00 97.8 F 56 L 22 165/70 96 08/12/19 22:15 63 150/65 08/12/19 21:00 98.1 F 63 18 140/65 93 L 08/12/19 10:45 59 L 171/76 08/12/19 10:25 60 158/74 08/12/19 10:05 96.7 F L 63 16 138/78 95 08/12/19 09:45 61 16 148/74 95 08/12/19 09:30 59 L 18 161/72 96 08/12/19 09:15 59 L 16 174/79 95 08/12/19 09:00 67 16 148/72 95 08/12/19 08:57 97.8 F 61 14 150/72 94 L Intake and Output 08/12/19 08/13/19 08/13/19 22:59 06:59 14:59 Intake Total 100 Balance 100 Intake: Intake, IV Titration 100 Amount Piperacillin-Tazobactam 3 100 .375 gm In Sodium Chloride 0.9% 100 ml @ 25 mls/hr IVPB Q8HR [facility] Rx# :[id number] Other: Voiding Method Bedside Commode # Voids 1 1 - Constitutional General appearance: no acute distress - EENT Eyes: EOMI - Neck Neck: no lymphadenopathy - Respiratory Respiratory: bilateral: CTA - Cardiovascular Heart sounds: normal: S1, S2 Abnormal Heart Sounds: no S3 Gallop - Gastrointestinal General gastrointestinal: soft, no tenderness - Integumentary Integumentary: normal, no rash - Psychiatric Psychiatric: A&O x's 3, appropriate affect, intact judgment & insight Results Labs: Microbiology - Last 24 Hours (Table) 08/12/19 08:36 Gram Stain - Preliminary Abdomen Wound Culture - Preliminary 08/12/19 08:36 Anaerobic Culture - Preliminary Abdomen Assessment and Plan (1) Non-pressure chronic ulcer of skin of other sites with fat layer exposed Current Visit: Yes Status: Acute Code(s): L98.492 - NON-PRS CHRONIC ULCER OF SKIN OF SITES W FAT LAYER EXPOSED SNOMED Code(s): 55634912 (2) Atrial fibrillation Current Visit: No Status: Acute Code(s): I48.91 - UNSPECIFIED ATRIAL FIBRILLATION SNOMED Code(s): 42666434 (3) HTN (hypertension) Current Visit: No Status: Acute Code(s): I10 - ESSENTIAL (PRIMARY) HYPE RTENSION SNOMED Code(s): 05675823 (4) Hyperlipemia Current Visit: No Status: Acute Code(s): E78.5 - HYPERLIPIDEMIA, UNSPECIFIED SNOMED Code(s): 38390078 Plan: Reconcile medications. The patient is on Lovenox at this time with DVT prophylaxis. Restart Eliquis once she is home. We'll continue to follow. Appreciate consultation. DC once cleared by surgery Time with Patient: Greater than 30
[2019-08-13] MEDS ORDERED: CALCIUM CARB-VIT D 500MG-200UN 1 EACH TAB PO SCH (09:00)
[2019-08-13] MEDS ORDERED: ASPIRIN 81 MG PO SCH (09:00)
[2019-08-13] MEDS ORDERED: FUROSEMIDE 20 MG TAB PO SCH (09:00)
[2019-08-13] MEDS ORDERED: ENOXAPARIN 40 MG/0.4 ML SYRINGE SQ SCH (09:00)
[2019-08-13 10:38] VITALS: BMI 37.2
--- NOTE | 2019-08-13 13:20 | P.DS ---
Providers Expected date of discharge: 08/13/19 Attending physician: Wyatt Camp Consults: 08/12/19 09:03 Consult Physician Routine Consulting Provider: Joe Colon Consult Reason/Comments: Medical management Do you want consulting provider notified?: Yes Primary care physician: Joe Colon Hospital Course: 84-year-old female who underwent incision and drainage of abdominal wall seroma and placement of wound VAC with Dr. Camp on 08/12/2019. Wound measures 10 x 20 x [address] Camp. Patient is doing well postoperatively without any immediate complications. She was deemed stable for discharge home today. Please see EMR for further hospital course details. Discharge Diagnosis Abdominal wall seroma, status post incision and drainage and placement of wound VAC Nurse practitioner note has been reviewed by physician. Signing provider agrees with the documented findings, assessment, and plan of care. Patient Condition at Discharge: Stable Plan - Discharge Summary Discharge Rx Participant: Yes New Discharge Prescriptions: Continue Hydrocodone/Acetaminophen [[place] 5-325] 1 tab PO Q6HR PRN #10 tab PRN Reason: Pain No Action Lisinopril-Hctz 10-12.5 mg [Zestoretic 10-12.5] 1 tab PO BID cloNIDine HCL [Catapres] 0.2 mg PO TID hydrALAZINE HCL 50 mg PO TID Vit A,C & E/Lutein/Minerals [Ocuvite Tablet] 1 tab PO DAILY Atorvastatin [Lipitor] 20 mg PO HS Aspirin [Adult Low Dose Aspirin EC] 81 mg PO DAILY Calcium Carbonate/Vitamin D3 [Calcium 600-Vit D3 800 Caplet] 1 each PO DAILY Apixaban [Eliquis] 5 mg PO BID #180 tab Atenolol [Tenormin] 50 mg PO DAILY #30 tab Furosemide [Lasix] 20 mg PO DAILY Discharge Medication List Lisinopril-Hctz 10-12.5 mg [Zestoretic 10-12.5] 1 tab PO BID 10/27/13 [History] cloNIDine HCL [Catapres] 0.2 mg PO TID 10/27/13 [History] hydrALAZINE HCL 50 mg PO TID 10/27/13 [History] Vit A,C & E/Lutein/Minerals [Ocuvite Tablet] 1 tab PO DAILY 12/16/13 [History] Aspirin [Adult Low Dose Aspirin EC] 81 mg PO DAILY 06/27/18 [History] Atorvastatin [Lipitor] 20 mg PO HS 06/27/18 [History] Calcium Carbonate/Vitamin D3 [Calcium 600-Vit D3 800 Caplet] 1 each PO DAILY 05/26/19 [History] Apixaban [Eliquis] 5 mg PO BID #180 tab 06/01/19 [Rx] Atenolol [Tenormin] 50 mg PO DAILY #30 tab 06/02/19 [Rx] Furosemide [Lasix] 20 mg PO DAILY 08/12/19 [History] Hydrocodone/Acetaminophen [[place] 5-325] 1 tab PO Q6HR PRN #10 tab 08/13/19 [Rx] Follow up Appointment(s)/Referral(s): [facility], [NON-STAFF] - [facility] [NON-STAFF] - 08/19/19 2:00 pm Wyatt Capm MD [STAFF PHYSICIAN] - 08/18/19 1:00 pm Patient Instructions/Handouts: Hydrocodone/Acetaminophen (By mouth), Negative Pressure Wound Therapy (DC) Activity/Diet/Wound Care/Special Instructions: Wound Vac ordered through [facility]: #[phone] Wound vac instructions/settings per Marry Elliott - clerical specialist [facility] will be at your house on Saturday to set-up your wound vac and apply a new wound vac dressing. Dr. Colon said to start taking Eliquis again at home
== END 2019-08-13 14:35 | disposition home or self-care (01) ==
LOC: OR 07:01 → 5NMEDONC 08:57 → OR 08-13 14:35
PROVIDERS: ATTEND Surgery
DX: L76.34 Postprocedural seroma of skin and subcutaneous tissue following other procedure (principal); L98.492 Non-pressure chronic ulcer of skin of other sites with fat layer exposed; I10 Essential (primary) hypertension; I48.91 Unspecified atrial fibrillation; E78.5 Hyperlipidemia, unspecified; Z79.01 Long term (current) use of anticoagulants; Z79.899 Other long term (current) drug therapy; Z79.82 Long term (current) use of aspirin; Z85.828 Personal history of other malignant neoplasm of skin; F41.9 Anxiety disorder, unspecified; Z90.49 Acquired absence of other specified parts of digestive tract; Z90.710 Acquired absence of both cervix and uterus; Z96.642 Presence of left artificial hip joint; Y69 Unspecified misadventure during surgical and medical care; Z96.651 Presence of right artificial knee joint; Z87.19 Personal history of other diseases of the digestive system
CPT/HCPCS: 87070; 87205; 87075; 10140; J2543 ×2; J0360; J1644; J1100; J0690; J2405; J1650

== ENCOUNTER 2019-09-15 14:35 | Emergency (ER) | payer MEDICARE, BC ==
[2019-09-15 14:41] VITALS: PULSE 70; RESP 18
--- NOTE | 2019-09-15 15:21 | ED ---
Extremity Problem HPI - General Chief complaint: Extremity Problem,Nontraumatic Stated complaint: L leg pain/swelling Time Seen by Provider: 09/15/19 14:43 Source: patient, EMS Mode of arrival: EMS Limitations: physical limitation - History of Present Illness Initial comments: Patient is a 89-year-old female presenting to emergency Department with chief complaint of left leg swelling. States she has bilateral lower extremity edema at baseline and is taking Lasix. States she has been taking her medications accordingly. Patient states over the last few days she has developed pain and swelling in the left lower extremity. The swelling is more than her baseline. Denies any erythematous changes. Denies any nausea vomiting diarrhea. Denies any fevers night sweats or chills. Denies taking any other medications to alleviate the symptoms. Denies any cough chest pain or shortness of breath. - Related Data Home Medications Medication Instructions Recorded Confirmed Lisinopril-Hctz 10-12.5 mg 1 tab PO BID 10/27/13 08/12/19 [Zestoretic 10-12.5] cloNIDine HCL [Catapres] 0.2 mg PO TID 10/27/13 08/12/19 hydrALAZINE HCL 50 mg PO TID 10/27/13 08/12/19 Vit A,C & E/Lutein/Minerals 1 tab PO DAILY 12/16/13 08/12/19 [Ocuvite Tablet] Aspirin [Adult Low Dose Aspirin EC] 81 mg PO DAILY 06/27/18 08/12/19 Atorvastatin [Lipitor] 20 mg PO HS 06/27/18 08/12/19 Calcium Carbonate/Vitamin D3 1 each PO DAILY 05/26/19 08/12/19 [Calcium 600-Vit D3 800 Caplet] Furosemide [Lasix] 20 mg PO DAILY 08/12/19 08/12/19 Previous Rx's Medication Instructions Recorded Apixaban [Eliquis] 5 mg PO BID #180 tab 06/01/19 Atenolol [Tenormin] 50 mg PO DAILY #30 tab 06/02/19 Hydrocodone/Acetaminophen [[place] 1 tab PO Q6HR PRN #10 tab 08/13/19 5-325] Allergies Allergy/AdvReac Type Severity Reaction Status Date / Time No Known Allergies Allergy Verified 09/15/19 14:41 Review of Systems ROS Statement: Those systems with pertinent positive or pertinent negative responses have been documented in the HPI. ROS Other: All systems not noted in ROS Statement are negative. Past Medical History Past Medical History: Cancer, Hyperlipidemia, Hypertension, Skin Disorder Additional Past Medical History / Comment(s): HX SKIN CANCER , DIVERTICULITIS, GALL STONE, STATES SHE WEARS A RIGHT ANKLE BRACE AND USES A CANE. ABDOMINAL WOUND-POST HERNIA SX History of Any Multi-Drug Resistant Organisms: None Reported Past Surgical History: Appendectomy, Bowel Resection, Hernia Repair, Hysterectomy, Joint Replacement Additional Past Surgical History / Comment(s): LT ALBINO, RT TKA, Skin cancer removed on back , COLONOSCOPY. bladder lift. Past Anesthesia/Blood Transfusion Reactions: No Reported Reaction Past Psychological History: Anxiety Smoking Status: Never smoker Past Alcohol Use History: None Reported Past Drug Use History: None Reported - Past Family History Mother Family Medical History: No Reported History General Exam Limitations: physical limitation Course Vital Signs 09/15/19 09/15/19 14:37 17:50 Pulse Rate 70 70 Respiratory 18 18 Rate Blood Pressure 178/77 206/94 O2 Sat by Pulse 98 97 Oximetry Medical Decision Making - Medical Decision Making Patient is an 84-year-old female presenting to emergency Department with chief complaint of leg pain and swelling. On exam patient does have slight increase in swelling in the left versus right lower extremity. Patient does have bilateral lower extremity edema at baseline for which she takes Lasix. No cellulitic changes noted. Ultrasound reveals no signs of DVT. Patient discharged and advised to follow with the primary care regarding changes to Lasix dosage. Upon discharge patient did have elevated systolic blood pressure although she was asymptomatic. Patient was given her nightly dose medication of Catapres 0.2 mg and 25 mg of hydralazine. Patient will be discharged. Daughter is also present during evaluation and all information was discussed with her. Case discussed with Dr. Joseph who is agreeable with discharge. Disposition Clinical Impression: Swelling of lower extremity, Left leg pain Disposition: HOME SELF-CARE Condition: Stable Instructions (If sedation given, give patient instructions): Leg Edema (ED) Additional Instructions: Please follow with the primary care. Return to emergency department if symptoms worsen. Is patient prescribed a controlled substance at d/c from ED?: No Referrals: Joe Colon MD [Primary Care Provider] - 1-2 days Time of Disposition: 17:25
--- NOTE | 2019-09-15 16:57 | US ---
EXAMINATION TYPE: US venous doppler duplex LE LT DATE OF EXAM: 09/15/2019 4:49 PM COMPARISON: NONE CLINICAL HISTORY: lower leg edema and swelling. Edema SIDE PERFORMED: Left TECHNIQUE: The lower extremity deep venous system is examined utilizing real time linear array sonog thania with graded compression, doppler sonography and color-flow sonography. VESSELS IMAGED: External Iliac Vein (EIV) Common Femoral Vein Deep Femoral Vein Greater Saphenous Vein * Femoral Vein Popliteal Vein Small Saphenous Vein * Proximal Calf Veins (* superficial vessels) Left Leg: Negative for DVT Grayscale, color doppler, spectral doppler imaging performed of the deep veins of the left lower extr emity. There is normal flow, compressibility, vascular waveforms. Subcutaneous edema seen. IMPRESSION: No sonographic evidence of deep venous thrombosis within the left lower extremity. Subcut aneous edema noted.
[2019-09-15] MEDS ORDERED: hydrALAZINE HCL 25 MG TAB PO STA (17:47)
[2019-09-15] MEDS ORDERED: cloNIDine HCL 0.2 MG TAB PO STA (18:02)
[2019-09-15 19:33] VITALS: BP 131/62; TEMP 98.1
== END 2019-09-15 18:50 | disposition home or self-care (01) ==
LOC: EC 14:35
DX: M79.89 Other specified soft tissue disorders (principal); M79.605 Pain in left leg; I10 Essential (primary) hypertension; E78.5 Hyperlipidemia, unspecified; Z79.82 Long term (current) use of aspirin; Z79.899 Other long term (current) drug therapy; Z85.828 Personal history of other malignant neoplasm of skin
CPT/HCPCS: 99284